=== PATIENT | male | born 1975 | race Caucasian/White ===

== ENCOUNTER 2025-02-28 12:07 | Observation (INO) | payer OTHER, SELFPAY ==
--- NOTE | ~2025-02-28 | CT_ITS ---
EXAMINATION: CT knee LT wo con DATE: 02/28/2025 12:51 INDICATION: Left knee pain and swelling. TECHNIQUE: Computed tomography (CT) of the left knee was performed without intravenous contrast. Automated exposure control and iterative reconstruction technique were employed. The dose-length product was 489.63 mGy-cm. COMPARISON: None FINDINGS: Alignment is normal. No fracture. There is mild osteoarthritis of medial and lateral compartments. No knee joint effusion. There is soft tissue swelling around the knee with an anterior predominance. There is a subcutaneous mass anterolateral to the distal femur measuring 4.1 x 1.7 x 3.0 cm. IMPRESSION: 1. Soft tissue swelling around the knee. A subcutaneous mass anterolateral to the distal femur that may be a hematoma or phlegmon/abscess. 2. Mild left knee osteoarthritis. Reviewed, dictated and finalized at location E. IMPRESSION: 1. Soft tissue swelling around the knee. A subcutaneous mass anterolateral to t he distal femur that may be a hematoma or phlegmon/abscess. 2. Mild left knee osteoarthritis.
[2025-02-28 12:07] VITALS: BP 128/81; PULSE 87; RESP 16; TEMP 36.4; O2SAT 100
--- NOTE | 2025-02-28 12:21 | ED_ITS ---
HPI - Extremity Injury (Lower) General Chief Complaint: Extremity Problem,Nontraumatic Stated Complaint: left knee redness and swelling Time Seen by Provider: 02/28/25 12:20 Source: patient Mode of arrival: ambulatory Limitations: no limitations History of Present Illness HPI Narrative: Patient is a 49-year-old male with a left knee pain and swelling and redness over the past week. He said the pain is more topical the deep into the knee joint. When he stands the pain is worst. He gets a throbbing pain. No fever or chills. No definite injury. No definite insect bite. Tetanus up-to-date. MD complaint: knee injury (Left knee without injury) Onset (ago): week(s) (1) Type of Injury: unknown Place: home Severity: moderate Severity scale (1-10): 4 Relieving factors: immobilization Exacerbating factors: weight bearing, movement and palpation Context: other (Unknown) Associated symptoms: swelling and able to partially bear weight Other symptoms: none Treatments prior to arrival: other (None) Related Data Home Medications ?Medication ?Instructions ?Recorded ?Confirmed ?Last Taken ?Type No Home Medications 02/28/25 02/28/25 U nknown History Allergies Allergy/AdvReac Type Severity Reaction Status Date / Time No Known Allergies Allergy Verified 02/28/25 12:22 Review of Systems 2 Review of Systems: All systems reviewed & are unremarkable except as noted in HPI and below Constitutional: Constitutional: Reports no additional constitutional complaints Eyes: Eyes: Reports no additional eye complaints ENT: Reports system reviewed and no additional complaints, except as documented Cardiovascular: Cardiovascular: Reports no additional cardiovascular complaints Respiratory: Respiratory: Reports no additional respiratory complaints Gastrointestinal: Gastrointestinal: Reports no additional gastrointestinal complaints Genitourinary: Genitourinary: Reports no additional male genitourinary complaints Musculoskeletal: Musculoskeletal: Reports no additional musculoskeletal complaints Integumentary/Breasts: Skin/Breast: Reports system reviewed and no additional complaints, except as docu Neurologic: Reports system reviewed and no additional complaints, except as documented Psychiatric: Psychiatric: Reports no additional psychiatric complaints Endocrine: Endocrine: Reports no additional endocrine complaints Hematologic/Lymphatic: Hematologic/Lymphatic: Reports no additional hematologic/lymphatic complaints Allergic/Immunologic: Allergic/Immunologic: Reports no additional allergic/immunologic complaints Exam 2 Const: General: healthy appearing Nutritional Appearance: well nourished Orientation/consciousness: patient oriented x3 HENMT: Head: normal to inspection Ears: external ears normal F sarah/Nose/Sinus: Normal external nose present Eyes: Conjunctivae: conjunctivae normal Pupils: Equal, round and reactive pupils present EOM: EOMs intact bilaterally Neck: Neck: normal visual inspection Chest: Chest palpation & inspection: normal inspection of the chest Resp: Effort & Inspection: normal respiratory effort and not labored A uscultation: clear to auscultation bilaterally and no crackles Cardio: Rate: regular rate Rhythm: regular rhythm Heart sounds: no murmurs GI: Inspection: non-distended GI Palp: Yes Soft to palpation and No Tenderness to palpation present (GI) Auscultation: normal bowel sounds : General: Yes bladder normal to palpation Back/Spine/Pelvis: Back: no CVA tenderness Skin: General skin exam: normal color Rashes: no rashes Wounds: no wounds Other: Left knee is red and swollen and tender to palpation Neuro: General: patient oriented x3, moves all extremities and no meningeal signs Extrem: General: normal to inspection, no clubbing, cyanosis or edema and no pedal edema Other: Left knee is tender and painful to palpation and range of motion but the pain appears to be more superficial than depth; swelling of the left knee Psych: Mental Status: mental status grossly normal Affect: normal affect Attitude: cooperative Course Vital Signs Vital signs: Vital Signs Temperature 36.4 C L 02/28/25 12:07 Pulse Rate 87 02/28/25 12:07 Respiratory Rate 16 02/28/25 12:07 Blood Pressure 128/81 02/28/25 12:07 Pulse Oximetry 100 02/28/25 12:07 Oxygen Delivery Room Air 02/28/25 12:07 Temperature 36.4 C L 02/28/25 12:07 Pulse Rate 78 02/28/25 14:44 Respiratory Rate 20 02/28/25 14:44 Blood Pressure 109/83 02/28/25 14:44 Pulse Oximetry 99 02/28/25 14:44 Oxygen Delivery Room Air 02/28/25 14:44 MDM - Extremity Injury (Lower) MDM Narrative Medical decision making narrative: Patient is a 49-year-old male with a left knee pain and swelling over the past week. CT scan of the left knee. Labs. I discussed the case with Orthopedic surgery at our [facility] and they deflected the case and said he can do IV antibiotics only and be switched to oral antibiotics. They did not need to do procedure on him at this time. We will admit to this facility for IV antibiotics as orthopedic surgeon at [facility] said no surgery needed but MRSA coverage needed. We will start Zosyn and let vancomycin be started on the floor as the bed is ready. Lab Data Attestation: I reviewed the patient's lab results. 02/28/25 12:31 02/28/25 12:31 Labs: Lab Results 02/28/25 02/28/25 02/28/25 Range/Units 12:29 12:31 14:46 WBC 13.3 H (4.8-10.8) K/mm3 RBC 4.64 L (4.70-6.10) M/mm3 Hgb 14.1 (14.0-18.0) g/dL Hct 42.7 (40.0-54.0) % MCV 92.0 (78.0-102.0) fL MCH 30.4 (27.0-31.0) pg MCHC 33.0 (32-36) g/dL RDW 12.6 (11.6-14.4) % Plt Count 280 (150-420) K/mm3 MPV 9.5 (8.7-11.0) fl Immature Gran % (Auto) 0.7 H (0.0-0.0) % Neut % (Auto) 74.0 H (50.0-70.0) % Lymph % (Auto) 18.4 (18.0-42.0) % [place] % (Auto) 5.9 (2.0-11.0) % Eos % (Auto) 0.5 L (1.0-6.0) % Baso % (Auto) 0.5 (0.0-1.0) % Lymph # (Auto) 2.44 (1.10-4.50) K/mm3 [place] # (Auto) 0.78 (0.10-0.90) K/mm3 Eos # (Auto) 0.06 (0.02-0.50) K/mm3 Baso # (Auto) 0.06 (0.00-0.10) K/mm3 Abs Immat Gran (auto) 0.09 H (0.00-0.00) K/mm3 Absolute Neuts (auto) 9.82 H (1.70-7.20) K/mm3 Absolute Nucleated RBC 0.00 (0.00-0.00) K/mm3 Nucleated RBC % 0.0 (0-0.0) % ESR 29 H (0-15) mm/hr PT 9.8 (9.50-12.1) Seconds INR 0.9 APTT 30.9 H (23.9-30.70) Sec Sodium 140 (137-145) mmol/L Potassium 3.9 (3.4-5.0) mmol/L Chloride 104 (98-107) mmol/L Carbon Dioxide 26 (22-30) mmol/L Anion Gap 10 (4-12) mmol/L BUN 15 (9-20) mg/dL Creatinine 0.67 L (0.7-1.3) mg/dL Estim Creat Clear Calc 120 ml/min Estimated GFR > 60 (59 - ) Glucose 145 H (65-110) mg/dL Calculated Osmolality 293 (285-295) mOsm/kg Lactic Acid 2.5 H 1.0 (0.4-2.0) mmol/L Calcium 9.5 (8.4-10.2) mg/dL Total Bilirubin 0.7 (0.2-1.3) mg/dL AST 27 (17-59) U/L ALT 25 (6-50) U/L Alkaline Phosphatase 82 (38-126) U/L C-Reactive Protein 3.9 H (<1.0) mg/dL Total Protein 8.7 H (6.3-8.2) g/dL Albumin 4.1 (3.5-5.1) g/dL Imaging Data Attestation: I personally reviewed and interpreted this imaging study as follows: Radiologist's impression: CT scan of the left knee shows IMPRESSION: 1. Soft tissue swelling around the knee. A subcutaneous mass anterolateral to the distal femur that may be a hematoma or phlegmon/abscess. 2. Mild left knee osteoarthritis. Discharge Plan Discharge Clinical Impression: Cellulitis of knee, left, Abscess of bursa of left knee Patient Disposition: [facility] Condition: Stable Time of Disposition: 14:30
[2025-02-28 12:40] LABS: Hematocrit 42.7 % (40.0-54.0); Hemoglobin 14.1 g/dL (14.0-18.0); Immature Granulocyte Percent A 0.7 % (0.0-0.0); Lymphocytes Absolute Auto 2.44 K/mm3 (1.10-4.50); Mean Corpuscular HGB Conc 33.0 g/dL (32-36); Mean Corpuscular Hemoglobin 30.4 pg (27.0-31.0); Mean Corpuscular Volume 92.0 fL (78.0-102.0); Nucleated Red Blood Cells Absolute Auto 0.00 K/mm3 (0.00-0.00); Nucleated Red Blood Cells Perc 0.0 % (0-0.0); Platelet Count Result 280 K/mm3 (150-420); Red Blood Count 4.64 M/mm3 (4.70-6.10); White Blood Count 13.3 K/mm3 (4.8-10.8)
[2025-02-28 12:55] LABS: Alanine Aminotransferase 25 U/L (6-50); Albumin Level 4.1 g/dL (3.5-5.1); Alkaline Phosphatase 82 U/L (38-126); Anion Gap 10 mmol/L (4-12); Aspartate Amino Transferase 27 U/L (17-59); Bilirubin,Total 0.7 mg/dL (0.2-1.3); Blood Urea Nitrogen 15 mg/dL (9-20); CRP 3.9 mg/dL (<1.0); Calcium 9.5 mg/dL (8.4-10.2); Carbon Dioxide 26 mmol/L (22-30); Chloride 104 mmol/L (98-107); Estimated CRCL calculation 120 ml/min; Estimated Glomerular Filt Rate > 60; Glucose 145 mg/dL (65-110); Osmolality Calculated 293 mOsm/kg (285-295); Potassium 3.9 mmol/L (3.4-5.0); Sodium 140 mmol/L (137-145); Total Protein 8.7 g/dL (6.3-8.2)
[2025-02-28 13:28] LABS: INR 0.9; Partial Thromboplastin Time 30.9 Sec (23.9-30.70); Prothrombin Time 9.8 Seconds (9.50-12.1)
[2025-02-28 13:35] VITALS: BP 117/83; PULSE 73; RESP 20; O2SAT 98
[2025-02-28] MEDS: PIPERACILLIN/TAZOBACTAM SOD 3.375 GM in SODIUM CHLORIDE 0.9% IV 50 ML 100 ML IVPB ×2 (14:34→20:52)
[2025-02-28 14:44] VITALS: BP 109/83; PULSE 78; RESP 20; O2SAT 99
[2025-02-28 15:49] VITALS: BMI 25.1
[2025-02-28 16:00] VITALS: BP 120/82; PULSE 74; RESP 18; TEMP 36.9; O2SAT 95
--- NOTE | 2025-02-28 17:01 | ADMGEN ---
1525 This patient, Pavan Miranda ., was admitted to 2nd Floor Room 210-1 for pain and redness to left knee. area is hot to cuh and painful. denies any injury just keeps getting mor painful over the last week. Patient/family oriented to hospital policies and general routines including ID bracelet, bed and alarms, visiting hours, pain management, procedures, bathroom and other care routines, personal items, smoking policy, room service/diet, and visiting hours. Information on how to activate the Rapid Response Team has been discussed. Patient/Family are encouraged to report perceived risks to care and to ask questions if they do not understand what they are told or what they should do.
[2025-02-28] MEDS: SODIUM CHLORIDE 0.9% IV 1,000 ML 100 ML IV CONT (17:19)
[2025-02-28] MEDS: DOCUSATE SODIUM 100 MG CAPSULE PO (17:20)
[2025-02-28] MEDS: MORPHINE SULFATE (*CRX) 4 MG/ML INJ 2 MG IV PUSH (18:59)
[2025-02-28] MEDS: VANCOMYCIN 2,000 MG/NS 500 ML 2,000 MG/500 ML BAG 250 MG IVPB (19:01)
[2025-03-01] VITALS: BP 121/78; PULSE 77; RESP 17; TEMP 36.7; O2SAT 97
[2025-03-01] MEDS: PIPERACILLIN/TAZOBACTAM SOD 3.375 GM in SODIUM CHLORIDE 0.9% IV 50 ML 100 ML IVPB ×4 (03:40→22:14)
[2025-03-01] MEDS: VANCOMYCIN 1,500 MG/NS 500 ML 1,500 MG/500 ML BAG 250 MG IVPB ×2 (06:23→18:30)
[2025-03-01] MEDS: HYDROcodone/acetaminophen (*CRX) 5-325 MG TABLET 1 TAB PO ×4 (06:46→22:23)
[2025-03-01 07:22] LABS: Hematocrit 38.6 % (40.0-54.0); Hemoglobin 12.5 g/dL (14.0-18.0); Immature Granulocyte Percent A 0.4 % (0.0-0.0); Lymphocytes Absolute Auto 3.01 K/mm3 (1.10-4.50); Mean Corpuscular HGB Conc 32.4 g/dL (32-36); Mean Corpuscular Hemoglobin 30.1 pg (27.0-31.0); Mean Corpuscular Volume 93.0 fL (78.0-102.0); Nucleated Red Blood Cells Absolute Auto 0.00 K/mm3 (0.00-0.00); Nucleated Red Blood Cells Perc 0.0 % (0-0.0); Platelet Count Result 248 K/mm3 (150-420); Red Blood Count 4.15 M/mm3 (4.70-6.10); White Blood Count 13.5 K/mm3 (4.8-10.8)
[2025-03-01 07:40] LABS: Alanine Aminotransferase 17 U/L (6-50); Albumin Level 3.3 g/dL (3.5-5.1); Alkaline Phosphatase 73 U/L (38-126); Anion Gap 9 mmol/L (4-12); Aspartate Amino Transferase 23 U/L (17-59); Bilirubin,Total 0.9 mg/dL (0.2-1.3); Blood Urea Nitrogen 10 mg/dL (9-20); CRP 5.8 mg/dL (<1.0); Calcium 8.9 mg/dL (8.4-10.2); Carbon Dioxide 24 mmol/L (22-30); Chloride 104 mmol/L (98-107); Estimated CRCL calculation 120 ml/min; Estimated Glomerular Filt Rate > 60; Glucose 91 mg/dL (65-110); Osmolality Calculated 283 mOsm/kg (285-295); Potassium 4.1 mmol/L (3.4-5.0); Sodium 137 mmol/L (137-145); Total Protein 6.6 g/dL (6.3-8.2)
[2025-03-01 08:00] VITALS: BP 134/85; PULSE 86; RESP 18; TEMP 37.4; O2SAT 95
[2025-03-01] MEDS: DOCUSATE SODIUM 100 MG CAPSULE PO ×2 (09:07→17:33)
[2025-03-01] MEDS: ENOXAPARIN 40 MG/0.4 ML SYRINGE SUB-Q (09:08)
--- NOTE | 2025-03-01 09:48 | PM.IMHP ---
H&P: HPI History of Present Illness Date/Time: 03/01/25 09:48 Chief Complaint: left knee pain Narrative: Patient is a 49-year-old male with past medical history of tobacco abuse. Patient reports that he started having left knee pain approximately 1 week ago. Patient reports there was no injury, wound or spider bite. Patient reports approximately 3 days before arriving he noticed redness and swelling to the knee. He reported that working and being active exacerbate the pain. Patient was seen in the ER and his blood work showed an elevated white blood cell count of 13.3 and a CRP of 3.8. Patient had a CT of his left knee done which showed No knee joint effusion. There is soft tissue swelling around the knee with an anterior predominance. There is a subcutaneous mass anterolateral to the distal femur measuring 4.1 x 1.7 x 3.0 cm. the ER MD discussed the case with Orthopedic surgery at [facility] and they stated that the patient could be treated here with IV antibiotics only did not need any procedures done at this time. The surgeon asked that antibiotic coverage including MRSA coverage. The patient was started on IV Zosyn and IV vancomycin. Pain control with IV morphine and p.o. [place] ordered. Patient was started on IV fluids. Patient was admitted for further evaluation and treatment. Review of Systems Review of Systems: All systems reviewed & are unremarkable except as noted in HPI and below PMFSH Social History Social History Smoking packs per day: 1 Smoking cigarettes per day: 20.0 Years smoked: 22 Smoking pack-years: 22.00 Smoking status: Heavy tobacco smoker Tobacco type: cigarettes Second hand tobacco smoke exposure: Yes Alcohol intake: never Substance use: current Substance use type: marijuana Lack of Transportation: No Lack of Food: Never True Current Housing: I Have Housing Concerned About Future Housing: No Difficulty Paying Gas/Electric Bills: No Difficulty Paying for Meds: No Currently Unemployed: No Education: High School Diploma/GED Difficulty w/ Childcare or Family Care: No Spiritual care concerns: No Meds Home Medications and Allergies Home Medications ?Medication ?Instructions ?Recorded ?Confirmed ?Type No Home Medications 02/28/25 02/28/25 History Allergies Allergy/AdvReac Type Severity Reaction Status Date / Time No Known Allergies Allergy Verified 02/28/25 12:22 Vital Signs Vital Signs - 24 hr 02/28/25 12:07 02/28/25 13:35 02/28/25 14:44 Temperature 97.5 F L Pulse Rate 87 73 78 Respiratory Rate 16 20 20 Blood Pressure 128/81 117/83 109/83 Pulse Oximetry 100 98 99 Oxygen Delivery Room Air Room Air Room Air 02/28/25 16:00 03/01/25 00:00 03/01/25 08:00 Temperature 98.4 F 98.1 F 99.4 F Pulse Rate 74 77 86 Respiratory Rate 18 17 18 Blood Pressure 120/82 121/78 134/85 Pulse Oximetry 95 97 95 Oxygen Delivery Room Air Room Air Room Air Exam Const: General: comfortable and no acute distress HENMT: Face/Nose/Sinus: Normal nares present Mouth: Yes moist mucous membranes Eyes: General: appearance normal, both eyes and all related structures Sclera: sclerae normal Neck: Neck: supple Resp: Effort & Inspection: normal respiratory effort Auscultation: clear to auscultation bilaterally Cardio: Rate: regular rate Rhythm: regular rhythm GI: GI Palp: Yes Soft to palpation Auscultation: normal bowel sounds Skin: General skin exam: normal color and no rashes or lesions noted Other: Left knee erythematous and warm, area marked with skin marker in ED, some improvement noted today Neuro: General: gait normal Speech: normal speech Motor exam (neuro): 5/5 motor strength present throughout Sensory Exam: normal sensation Extrem: General: normal to inspection Psych: Mental Status: mental status grossly normal Affect: normal affect H&P: Results Labs Labs: Short CBC 02/28/25 03/01/25 Range/Units 12:31 06:58 WBC 13.3 H 13.5 H (4.8-10.8) K/mm3 Hgb 14.1 12.5 L (14.0-18.0) g/dL Hct 42.7 38.6 L (40.0-54.0) % Plt Count 280 248 (150-420) K/mm3 BMP 02/28/25 03/01/25 12:31 06:59 Sodium 140 137 Potassium 3.9 4.1 Chloride 104 104 Carbon Dioxide 26 24 BUN 15 10 D Creatinine 0.67 L 0.67 L Glucose 145 H 91 Calcium 9.5 8.9 Liver Function 10/03/25 10/04/25 Range/Units 12:31 06:59 Total Bilirubin 0.7 0.9 (0.2-1.3) mg/dL AST 27 23 (17-59) U/L ALT 25 17 (6-50) U/L Alkaline Phosphatase 82 73 (38-126) U/L Albumin 4.1 3.3 L (3.5-5.1) g/dL Imaging Left Knee CT: Radiologist's impression: EXAMINATION: CT knee LT wo con DATE: 02/28/2025 12:51 INDICATION: Left knee pain and swelling. TECHNIQUE: Computed tomography (CT) of the left knee was performed without intravenous contrast. Automated exposure control and iterative reconstruction technique were employed. The dose-length product was 489.63 mGy-cm. COMPARISON: None FINDINGS: Alignment is normal. No fracture. There is mild osteoarthritis of medial and lateral compartments. No knee joint effusion. There is soft tissue swelling around the knee with an anterior predominance. There is a subcutaneous mass anterolateral to the distal femur measuring 4.1 x 1.7 x 3.0 cm. IMPRESSION: 1. Soft tissue swelling around the knee. A subcutaneous mass anterolateral to the distal femur that may be a hematoma or phlegmon/abscess. 2. Mild left knee osteoarthritis. Reviewed, dictated and finalized at location E. Assessment and Plan Assessment and plan (1) Cellulitis of knee, left: Code(s): L03.116 - Cellulitis of left lower limb Status: Acute Assessment and Plan: S/P left knee CT - FINDINGS: Alignment is normal. No fracture. There is mild osteoarthritis of medial and lateral compartments. No knee joint effusion. There is soft tissue swelling around the knee with an anterior predominance. There is a subcutaneous mass anterolateral to the distal femur measuring 4.1 x 1.7 x 3.0 cm. the ER MD discussed the case with Orthopedic surgery at [facility] and they stated that the patient could be treated here with IV antibiotics only did not need any procedures done at this time. The surgeon asked that antibiotic coverage including MRSA coverage WBC 13.3, ESR 3.8 on admission patient started on IV Zosyn and IV vancomycin IV fluids pain control with p.r.n. IV morphine and p.r.n. [place] slight improvement noted today compared to the skin markings from the ER doctor today's labs showed WBC 13.5, ESR 5.9 once patient has improved more the plan will be to discharge home on p.o. antibiotics A.m. labs (2) Abscess of bursa of left knee: Code(s): M71.062 - Abscess of bursa, left knee Status: Acute Assessment and Plan: see above (3) Leukocytosis: Code(s): D72.829 - Elevated white blood cell count, unspecified Status: Acute Assessment and Plan: WBC 13.3 on admission WBC 13.5 on today's labs IV Zosyn and IV Vancomycin afebrile f/u blood cultures AM labs (4) Smoker: Code(s): F17.200 - Nicotine dependence, unspecified, uncomplicated Status: Acute Assessment and Plan: smoking cessation encouraged nicotine patch if needed Quality VTE Prophylaxis VTE prophylaxis: pharmacologic ordered
[2025-03-01] MEDS: SODIUM CHLORIDE 0.9% IV 1,000 ML 100 ML IV CONT (12:54)
[2025-03-01 16:00] VITALS: BP 113/73; PULSE 74; RESP 15; TEMP 36.8; O2SAT 95
--- NOTE | 2025-03-01 20:14 | PC.NURSE ---
Patient in bed resting in bed. Up to bathroom and ambulates in room ad jr. Redness and swelling decreased. Patient requested pain medication x1.
[2025-03-01 23:12] VITALS: BP 120/69; PULSE 86; RESP 18; TEMP 37.7; O2SAT 100
[2025-03-02] MEDS: SODIUM CHLORIDE 0.9% IV 1,000 ML 100 ML IV CONT (02:07)
[2025-03-02] MEDS: PIPERACILLIN/TAZOBACTAM SOD 3.375 GM in SODIUM CHLORIDE 0.9% IV 50 ML 100 ML IVPB ×2 (02:07→09:04)
[2025-03-02] MEDS: HYDROcodone/acetaminophen (*CRX) 5-325 MG TABLET 1 TAB PO ×2 (02:13→07:12)
[2025-03-02] MEDS: VANCOMYCIN 1,500 MG/NS 500 ML 1,500 MG/500 ML BAG 250 MG IVPB (06:14)
[2025-03-02 06:36] LABS: Hematocrit 35.7 % (40.0-54.0); Hemoglobin 11.8 g/dL (14.0-18.0); Immature Granulocyte Percent A 0.5 % (0.0-0.0); Lymphocytes Absolute Auto 2.30 K/mm3 (1.10-4.50); Mean Corpuscular HGB Conc 33.1 g/dL (32-36); Mean Corpuscular Hemoglobin 30.3 pg (27.0-31.0); Mean Corpuscular Volume 91.5 fL (78.0-102.0); Nucleated Red Blood Cells Absolute Auto 0.00 K/mm3 (0.00-0.00); Nucleated Red Blood Cells Perc 0.0 % (0-0.0); Platelet Count Result 248 K/mm3 (150-420); Red Blood Count 3.90 M/mm3 (4.70-6.10); White Blood Count 13.0 K/mm3 (4.8-10.8)
[2025-03-02 07:03] LABS: Alanine Aminotransferase 16 U/L (6-50); Albumin Level 2.9 g/dL (3.5-5.1); Alkaline Phosphatase 71 U/L (38-126); Anion Gap 7 mmol/L (4-12); Aspartate Amino Transferase 22 U/L (17-59); Bilirubin,Total 0.4 mg/dL (0.2-1.3); Blood Urea Nitrogen 12 mg/dL (9-20); Calcium 8.6 mg/dL (8.4-10.2); Carbon Dioxide 26 mmol/L (22-30); Chloride 105 mmol/L (98-107); Estimated CRCL calculation 113 ml/min; Estimated Glomerular Filt Rate > 60; Glucose 95 mg/dL (65-110); Osmolality Calculated 285 mOsm/kg (285-295); Potassium 4.1 mmol/L (3.4-5.0); Sodium 138 mmol/L (137-145); Total Protein 5.8 g/dL (6.3-8.2)
[2025-03-02 08:00] VITALS: BP 111/63; PULSE 77; RESP 18; TEMP 37; O2SAT 95
[2025-03-02] MEDS: DOCUSATE SODIUM 100 MG CAPSULE PO (09:05)
[2025-03-02] MEDS: ENOXAPARIN 40 MG/0.4 ML SYRINGE SUB-Q (09:05)
--- NOTE | 2025-03-02 11:39 | PC.NURSE ---
Mari Angela and Dr Herzog from ED to look at knee cellulitis
--- NOTE | 2025-03-02 13:11 | PC.NURSE ---
Awaiting call back from house superintendent at [facility], accepted by DR Orozco for direct admit.
[2025-03-02] MEDS: metroNIDAZOLE 500 MG/ISO 100ML 500 MG/100 ML BAG 100 MG IVPB (13:13)
--- NOTE | 2025-03-02 13:40 | P.DS_ITS ---
DS: Admitting Diagnosis Discharge Date 03/02/2025 Admitting Diagnosis left knee cellulitis DS: Discharge Diagnosis Discharge Diagnosis (1) Cellulitis of knee, left: Code(s): L03.116 - Cellulitis of left lower limb Status: Acute Assessment and Plan: S/P left knee CT - FINDINGS: Alignment is normal. No fracture. There is mild osteoarthritis of medial and lateral compartments. No knee joint effusion. There is soft tissue swelling around the knee with an anterior predominance. There is a subcutaneous mass anterolateral to the distal femur measuring 4.1 x 1.7 x 3.0 cm. the ER MD discussed the case with Orthopedic surgery at [facility] and they stated that the patient could be treated here with IV antibiotics only did not need any procedures done at this time. The surgeon asked that antibiotic coverage including MRSA coverage WBC 13.3, ESR 3.8 on admission patient started on IV Zosyn and IV vancomycin IV fluids pain control with p.r.n. IV morphine and p.r.n. [place] Patients wbc and ESR remain elevated palpable abscess on exam, no open wound to drain discussed case with general surgery at [facility] and decision made to transfer patient for surgical intervention patient agrees for transfer (2) Abscess of bursa of left knee: Code(s): M71.062 - Abscess of bursa, left knee Status: Acute Assessment and Plan: see above (3) Leukocytosis: Code(s): D72.829 - Elevated white blood cell count, unspecified Status: Acute Assessment and Plan: WBC 13.3 on admission WBC not improving IV Zosyn and IV Vancomycin afebrile f/u blood cultures (4) Smoker: Code(s): F17.200 - Nicotine dependence, unspecified, uncomplicated Status: Acute Assessment and Plan: smoking cessation encouraged nicotine patch if needed DS: Summary Hospital Course Reason for hospitalization: left knee cellulitis Hospital Course: Patient is a 49-year-old male with past medical history of tobacco abuse. Patient reports that he started having left knee pain approximately 1 week ago. Patient reports there was no injury, wound or spider bite. Patient reports approximately 3 days before arriving he noticed redness and swelling to the knee. He reported that working and being active exacerbate the pain. Patient was seen in the ER and his blood work showed an elevated white blood cell count of 13.3 and a CRP of 3.8. Patient had a CT of his left knee done which showed No knee joint effusion. There is soft tissue swelling around the knee with an anterior predominance. There is a subcutaneous mass anterolateral to the distal femur measuring 4.1 x 1.7 x 3.0 cm. the ER MD discussed the case with Orthopedic surgery at [facility] and they stated that the patient could be treated here with IV antibiotics only did not need any procedures done at this time. The surgeon asked that antibiotic coverage including MRSA coverage. The patient was started on IV Zosyn and IV vancomycin. Pain control with IV morphine and p.o. [place] ordered. Patient was started on IV fluids. Patient was admitted for further evaluation and treatment. Patient is a 49 year old male with PMH of tobacco abuse. Patient was admitted at [facility] for left knee cellulitis and possible abscess. Patient reports he started having pain approximately 1 week ago, there was no injury, wound or spider bite. Patient reports that he noticed redness and swelling to the knee approximately 3 days before presenting to the ER. Patient had an elevated white blood cell count 13.3 and CRP of 3.8 on admission. Patient had a CT of his left knee done which showed No knee joint effusion. There is soft tissue swelling around the knee with an anterior predominance. There is a subcutaneous mass anterolateral to the distal femur measuring 4.1 x 1.7 x 3.0 cm. Patient was admitted to the hospital and was treated with IV Zosyn and IV Vancomycin. Patient's pain was improving and there was some notable improvement to the erythema to the left knee joint, however there was a palpable abscess. Patient's white blood cell count was not improving. There was no open wound and the abscess was not draining. The case was discussed with general surgery at [facility] and they agreed the abscess needed drainage. Patient agreed to transfer for surgical intervention. Patient was transferred to [facility] by [facility]. Time Spent with Patient Time attestation: Total time spent providing and/or coordinating discharge services: 35 Minutes Exam Const: General: comfortable and no acute distress HENMT: Face/Nose/Sinus: Normal nares present Mouth: Yes moist mucous membranes Eyes: General: appearance normal, both eyes and all related structures Sclera: sclerae normal Neck: Neck: supple Resp: Effort & Inspection: normal respiratory effort Auscultation: clear to auscultation bilaterally Cardio: Rate: regular rate Rhythm: regular rhythm GI: Auscultation: normal bowel sounds Skin: General skin exam: normal color and no rashes or lesions noted Other: Left knee erythematous and warm, area marked with skin marker in ED, some improvement noted today Neuro: General: gait normal Speech: normal speech Motor exam (neuro): 5/5 motor strength present throughout Sensory Exam: normal sensation Extrem: General: normal to inspection Psych: Mental Status: mental status grossly normal Affect: normal affect DS: Data Data Completed and Pending Labs on day of discharge: Labs from last 24 hours 03/02/25 04:50 WBC 13.0 H RBC 3.90 L Hgb 11.8 L Hct 35.7 L MCV 91.5 MCH 30.3 MCHC 33.1 RDW 12.2 Plt Count 248 MPV 10.2 Immature Gran % (Auto) 0.5 H Neut % (Auto) 72.5 H Lymph % (Auto) 17.7 L [place] % (Auto) 8.0 Eos % (Auto) 0.8 L Baso % (Auto) 0.5 Lymph # (Auto) 2.30 [place] # (Auto) 1.04 H Eos # (Auto) 0.10 Baso # (Auto) 0.06 Abs Immat Gran (auto) 0.06 H Absolute Neuts (auto) 9.47 H Absolute Nucleated RBC 0.00 Nucleated RBC % 0.0 ESR 46 H Sodium 138 Potassium 4.1 Chloride 105 Carbon Dioxide 26 Anion Gap 7 BUN 12 Creatinine 0.71 Estim Creat Clear Calc 113 Estimated GFR > 60 Glucose 95 Calculated Osmolality 285 Calcium 8.6 Total Bilirubin 0.4 AST 22 ALT 16 Alkaline Phosphatase 71 Total Protein 5.8 L Albumin 2.9 L Vancomycin Trough 7.5 L Discharge Plan Discharge Attending physician on discharge: Hiren Solomon Consulting providers: Mari Angela Discharging Clinician: Mari Angela Patient Disposition: Acute Care Hospital [facility] Activity: as tolerated Diet: regular Discharge Instructions: Transfer to [facility] via EMS for general surgery consult for left knee abscess. Patient Instructions: Antibiotic Form, How to Stop Smoking (DC) Patient Language: Bhutanese Stand Alone Forms: General Discharge Information Date of admission: 02/28/25 14:58 Primary Care Provider: Tomasz Guerra Admitting Provider: Hiren Solomon Attending physician on admission: Juanito,Hiren Condition: Stable Quality VTE Prophylaxis VTE prophylaxis: pharmacologic ordered
--- NOTE | 2025-03-02 13:50 | PC.NURSE ---
Report to [facility]
--- NOTE | 2025-03-02 13:52 | PC.NURSE ---
[facility] paged for transfer
--- NOTE | 2025-03-02 14:20 | PC.NURSE ---
Report to EMS for transfer, paperwork for receiving hospital to EMS, alert and oriented, flagyl infused, ns at 100 /hr continues
== END 2025-03-02 14:20 | disposition short-term general hospital (02) ==
LOC: CHSED 14:30 → CHS2ND 15:08
PROVIDERS: Nurse Practitioner Adult Health; Admitting Provider Internal Medicine; Emergency Provider Emergency Medicine; PCP Internal Medicine; Visit Provider Internal Medicine
DX: L03.116 Cellulitis of left lower limb (principal); M71.062 Abscess of bursa, left knee; D72.829 Elevated white blood cell count, unspecified; F17.210 Nicotine dependence, cigarettes, uncomplicated
CPT/HCPCS: 36415; 73700; 80053; 80202; 83605; 85025; 85610; 85652; 85730; 86140; 96361; 96365; 96366; 96367; 96372; 96375; 99285; A9270; G0378; G0379; J1650; J1836; J2270; J2543; J3373; J7030

== ENCOUNTER 2025-03-02 15:33 | Observation (INO) | payer OTHER, SELFPAY ==
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
--- OUTSIDE RECORDS SUMMARY | 2025-03-02 15:06 | XMS_ITS | Encounter Summary ---
Author Organization [facility] Address [address] [place] [address] Care Team Providers Care Assistant Passenger Locomotive Engineer Name Role Phone None, Provider Primary Care Provider Kit ble Encounter Details Date Type Department Care Team (Late st Contact Info) Description 02/20/2024 Hospital Follow-up Call [facility] [address] [place] [address] Venessa Constantino RN Social History Tobacco Use Types Packs/Day Years Used Date Smoking Tobacco: Never Assessed [facility] Utilities Answer Date Recorded In the past 12 months has e electric, gas, oil, or water [employer] threatened to shut off services in your [...] any time in the past [address] [facility], were you homeless or living in a residential (including now)? 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 Answer Date of Assessment Author Status No 02/17/2024 11:00 AM Juliana Avila RN Active * Do you have serious difficulty walking or climbing stairs? Answer Date of Assessment Author Status No 02/17/2024 11:00 AM Juliana Avila RN Active * Do you have difficulty dressing or bathing? Answer Date of Assessment Author Status No 02/17/2024 11:00 AM Juliana Avila RN Active * Because of a physical, mental, or emotional condition, do you have difficulty doing errands alone such as visiting a doctor's office or shopping? Answer Date of Assessment Author Status No 02/17/2024 11:00 AM Juliana Avila RN Active documented as of this encounter Mental Status * Because of a physical, mental, or emotional condition, do you have serious difficulty concentrating, remembering, or making decisions? Answer Entry Date Author Status No 02/17/2024 11:00 AM Juliana Avila RN Active documented in this encounter Plan of Treatment Not on file documented as of this encounter Visit Diagnoses Not on filedocumented in this encounter Care Teams Assistant Passenger Locomotive Engineer Relationship Specialty Start Date End Date None, Provider, PCP - General UNKNOWN PHYSICIAN SPECIALTY 02/17/24 documented as of this encounter
--- OUTSIDE RECORDS SUMMARY | 2025-03-02 15:06 | XMS_ITS | Encounter Summary ---
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
[2025-03-02 15:15] VITALS: BMI 26.1
--- NOTE | 2025-03-02 15:15 | PC.NURSE ---
This patient was received from [facility] as a direct admit. Room 346 at 1510.
[2025-03-02 15:31] VITALS: BP 139/83; PULSE 76; RESP 16; TEMP 37.2; O2SAT 97
--- OUTSIDE RECORDS SUMMARY | 2025-03-02 15:43 | XMS_ITS | Clinical Summary ---
Author Organization [facility] Address [address] [place] [address] Care Team Providers Care Tool Polisher Name Role Phone None, Provider MD Primary [...] Years Used Date Smoking Tobacco: Never Assessed [facility] Utilities Answer Date Recorded In the [...] any time in the past 12 m [facility], were you homeless or living in a custodial (including now)? 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
--- OUTSIDE RECORDS SUMMARY | 2025-03-02 15:43 | XMS_ITS | Encounter Summary ---
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
--- OUTSIDE RECORDS SUMMARY | 2025-03-02 15:43 | XMS_ITS | Encounter Summary ---
Author Organization [facility] Address [address] [place] [address] Care Team Providers Care Shingle Catcher Name Role Phone None, Provider Primary Care Provider Kit ble Encounter Details Date Type Department Care Team (Late st Contact Info) Description 02/20/2024 Hospital Follow-up Call [facility] Cardiovascular Care Unit [address] [place] [address] Venessa Constantino RN Social History Tobacco Use Types Packs/Day Years Used Date Smoking Tobacco: Never Assessed [facility] Utilities Answer Date Recorded In the past 12 months has e electric, gas, oil, or water [employer] threatened to shut off services in your [...] any time in the past 12 m [facility], were you homeless or living in a residential (including now)? 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
--- NOTE | 2025-03-02 15:53 | PM.IMHP ---
H&P: HPI History of Present Illness Date/Time: 03/02/25 15:53 Chief Complaint: Left knee bursa abscess Narrative: This is a 49-year-old male patient no significant past medical history except smoking tobacco who is transferred to this facility from [facility] where he had previously been admitted with cellulitis and abscess of the left knee. He had been admitted on 02/28/2025 with IV antibiotics pain medication. Patient has continued to have elevated white blood cell count and a consolidation his swelling erythema tenderness. CT scan noted that there was a hematoma verses phlegmon/developing abscess in the left knee bursa. Orthopedics declined patient since the infection was not in the knee joint. General surgery, Dr. Tahkur, was contacted today and agreed to consult with likely plan to go to OR for I&D on 03/03/25. Patient had been on vancomycin and Zosyn, renal function on morning labs still normal. Decision was made to change antibiotics to cefepime Flagyl and vancomycin on arrival to this facility. Pharmacy has been following vancomycin dosing and has escalated dosing today. Patient will be kept NPO after midnight. Review of Systems Review of Systems: All systems reviewed & are unremarkable except as noted in HPI and below PMFSH Family History Family History Mother Brain cancer Social History Social History Smoking packs per day: 0.5 Smoking cigarettes per day: 10.0 Years smoked: 35 Smoking pack-years: 17.50 Smoking status: Current every day smoker Tobacco type: cigarettes Second hand tobacco smoke exposure: No Alcohol intake: never Substance use: current Substance use type: marijuana Last use: 02/27/25 Lack of Transportation: No Lack of Food: Never True Current Housing: I Have Housing Concerned About Future Housing: No Difficulty Paying Gas/Electric Bills: No Difficulty Paying for Meds: No Currently Unemployed: No Education: Associate Degree Difficulty w/ Childcare or Family Care: No Spiritual care concerns: No Meds Home Medications and Allergies Home Medications ?Medication ?Instructions ?Recorded ?Confirmed ?Type No Home Medications 02/28/25 03/02/25 History Allergies Allergy/AdvReac Type Severity Reaction Status Date / Time No Known Allergies Allergy Verified 02/28/25 12:22 Vital Signs Vital Signs - 24 hr 03/02/25 15:31 Temperature 37.2 C Pulse Rate 76 Respiratory Rate 16 Blood Pressure 139/83 Pulse Oximetry 97 Exam Narrative: GENERAL: Well-appearing, well-nourished, and in no acute distress. HEAD: Normocephalic, atraumatic. ENT:? Mucous membranes moist. CHEST: Clear to auscultation.? No respiratory distress. HEART: Regular rate and rhythm. ? Normal peripheral pulses. ABDOMEN: Soft, nontender, nondistended. EXTREMITIES: Normal range of motion. Left knee erythema warmth tenderness and fluctuance noted to the suprapatellar bursa SKIN: Warm dry normal color NEURO: Alert and oriented x3. PSYCH: Normal mood and affect H&P: Results Labs Labs: Labs from last 24 hours 03/02/25 04:50 WBC 13.0 H RBC 3.90 L Hgb 11.8 L Hct 35.7 L MCV 91.5 MCH 30.3 MCHC 33.1 RDW 12.2 Plt Count 248 MPV 10.2 Immature Gran % (Auto) 0.5 H Neut % (Auto) 72.5 H Lymph % (Auto) 17.7 L [place] % (Auto) 8.0 Eos % (Auto) 0.8 L Baso % (Auto) 0.5 Lymph # (Auto) 2.30 [place] # (Auto) 1.04 H Eos # (Auto) 0.10 Baso # (Auto) 0.06 Abs Immat Gran (auto) 0.06 H Absolute Neuts (auto) 9.47 H Absolute Nucleated RBC 0.00 Nucleated RBC % 0.0 ESR 46 H Sodium 138 Potassium 4.1 Chloride 105 Carbon Dioxide 26 Anion Gap 7 BUN 12 Creatinine 0.71 Estim Creat Clear Calc 113 Estimated GFR > 60 Glucose 95 Calculated Osmolality 285 Calcium 8.6 Total Bilirubin 0.4 AST 22 ALT 16 Alkaline Phosphatase 71 Total Protein 5.8 L Albumin 2.9 L Vancomycin Trough 7.5 L Pulse Oximetry SpO2 results: 97% on room air Attestation: I personally reviewed and interpreted this pulse oximetry as follows: Interpretation: No need for supplemental oxygenation at this time Imaging CT Knee: Radiologist's impression: EXAMINATION: CT knee LT wo con DATE: 02/28/2025 12:51 INDICATION: Left knee pain and swelling. TECHNIQUE: Computed tomography (CT) of the left knee was performed without intravenous contrast. Automated exposure control and iterative reconstruction technique were employed. The dose-length product was 489.63 mGy-cm. COMPARISON: None FINDINGS: Alignment is normal. No fracture. There is mild osteoarthritis of medial and lateral compartments. No knee joint effusion. There is soft tissue swelling around the knee with an anterior predominance. There is a subcutaneous mass anterolateral to the distal femur measuring 4.1 x 1.7 x 3.0 cm. IMPRESSION: 1. Soft tissue swelling around the knee. A subcutaneous mass anterolateral to the distal femur that may be a hematoma or phlegmon/abscess. 2. Mild left knee osteoarthritis. Reviewed, dictated and finalized at location E. Assessment and Plan Assessment and plan (1) Abscess of bursa of left knee: Code(s): M71.062 - Abscess of bursa, left knee Status: Acute Assessment and Plan: -Consolidating swelling warmth and erythema with fluctuance suggesting evolution of phlegmon/abscess -Dr. Thakur agreed to consult and see patient on 03/03/25 if patient transferred to Hospitalist Service -IV vancomycin dosing increased due to low Trough and continued evolution of abscess -IV Zosyn changed to cefepime and Flagyl to preserve renal function -Pain controlled on Tylenol/Riddle/morphine for mild/moderate/severe pain -NPO after midnight (2) Cellulitis of knee, left: Code(s): L03.116 - Cellulitis of left lower limb Status: Acute Assessment and Plan: See above (3) Smoker: Code(s): F17.200 - Nicotine dependence, unspecified, uncomplicated Status: Acute Assessment and Plan: -Declined nicotine patch at [facility] Quality If No VTE Prophylaxis Answer both mechanical and pharmacologic: Reason no mechanical VTE proph: low risk/not indicated and medical contraindication (leg swelling/pain) Reason no pharmacologic proph: low risk/not indicated and medical contraindication (OR planned 03/02/25) Patient indicated he would leave [place] if his visitor unable to stay overnight due to her own medical history, Cut Off Machine Unloader notified. Hospitalist MIPS Advance Care Plan I have confirmed that the patient's Advanced Care Plan is present, code status is documented, or surrogate decision maker is listed in patient medical record.: Yes Medication Reconciliation I have utilized all available resources to obtain, update and review the patients current medications (includes all prescriptions, OTC, herbals, cannabis, and nutritional supplements).: Yes
[2025-03-02] MEDS: HYDROcodone/acetaminophen (*CRX) 5-325 MG TABLET 1 TAB PO ×2 (15:58→21:22)
[2025-03-02] MEDS: CEFEPIME 2 GM in SODIUM CHLORIDE 0.9% IV 50 ML 100 ML IVPB (15:59)
[2025-03-02 16:00] VITALS: BP 148/91; PULSE 96; RESP 20; TEMP 36.9; O2SAT 96
[2025-03-02] MEDS: VANCOMYCIN 2,000 MG/NS 500 ML 2,000 MG/500 ML BAG 250 MG IVPB (17:47)
[2025-03-02] MEDS: SODIUM CHLORIDE 0.9% IV 1,000 ML 75 ML IV CONT (21:22)
[2025-03-02] MEDS: metroNIDAZOLE 500 MG/ISO 100ML 500 MG/100 ML BAG 100 MG IVPB (21:22)
[2025-03-02 22:57] VITALS: BP 134/77; PULSE 85; RESP 16; TEMP 37.3; O2SAT 96
[2025-03-03] VITALS (11 sets, daily range): BP systolic 111–127; BP diastolic 51–83; PULSE 68–84; RESP 12–20; TEMP 36.1–37.2; O2SAT 94–100
[2025-03-03] MEDS: CEFEPIME 2 GM in SODIUM CHLORIDE 0.9% IV 50 ML 100 ML IVPB ×4 (00:37→23:56)
[2025-03-03] MEDS: HYDROcodone/acetaminophen (*CRX) 5-325 MG TABLET 1 TAB PO ×3 (03:21→22:41)
[2025-03-03] MEDS: metroNIDAZOLE 500 MG/ISO 100ML 500 MG/100 ML BAG 100 MG IVPB ×3 (05:21→22:42)
[2025-03-03] MEDS: VANCOMYCIN 2,000 MG/NS 500 ML 2,000 MG/500 ML BAG 250 MG IVPB ×2 (05:21→17:57)
[2025-03-03 05:56] LABS: Hematocrit 37.6 % (42.0-52.0); Hemoglobin 12.7 g/dL (14.0-18.0); Immature Granulocyte Percent A 0.7 % (0-0.5); Lymphocytes Absolute Auto 2.14 K/mm3 (0.9-3.2); Mean Corpuscular HGB Conc 33.8 g/dl (32-36); Mean Corpuscular Hemoglobin 30.7 pg (26-34); Mean Corpuscular Volume 90.8 fl (80-100); Nucleated Red Blood Cells Absolute Auto 0.000 K/mm3 (0.0-0.012); Nucleated Red Blood Cells Perc 0.0 % (0.0-0.2); Platelet Count Result 249 k/mm3 (150-375); Red Blood Count 4.14 M/mm3 (4.6-6.20); White Blood Count 12.9 K/mm3 (4.5-10.0)
[2025-03-03 06:22] LABS: Alanine Aminotransferase 23 U/L (6-50); Albumin Level 3.4 g/dL (3.5-5.1); Alkaline Phosphatase 80 U/L (38-126); Anion Gap 6 mmol/L (4-12); Aspartate Amino Transferase 34 U/L (17-59); Bilirubin,Total 0.4 mg/dL (0.2-1.3); Blood Urea Nitrogen 11 mg/dL (9-20); Calcium 8.7 mg/dL (8.4-10.2); Carbon Dioxide 25 mmol/L (22-30); Chloride 103 mmol/L (98-107); Estimated CRCL calculation 128 ml/min; Estimated Glomerular Filt Rate > 60; Glucose 93 mg/dL (65-110); Magnesium 1.9 mg/dL (1.6-2.3); Potassium 3.8 mmol/L (3.4-5.0); Sodium 134 mmol/L (137-145); Total Protein 6.8 g/dL (6.3-8.2)
--- NOTE | 2025-03-03 06:58 | PM.IMPN ---
Progress Note: A&P Assessment and Plan (1) Abscess of bursa of left knee: Code(s): M71.062 - Abscess of bursa, left knee Status: Acute Assessment and Plan: Consolidated swelling and erythema with fluctuance to the medial aspect of the distal femur superior to the patella No obvious wounds. No drainage. Denies any trauma. Knee CT: Soft tissue swelling around the knee. A subcutaneous mass anterolateral to the distal femur that may be a hematoma or phlegmon/abscess. - Antibiotics: Vancomycin and Zosyn started on 03/01. Transitioned to vancomycin, cefepime and Flagyl on 03/02 - Analgesics: Tylenol/[place]/morphine for mild/moderate/severe pain respectively - Blood cultures obtained on 02/28: NGTD - UDS ordered - Monitor vital signs, I&Os - Monitor serum electrolytes, CBC, cultures, WBC and temp curve - Surgery consulted plan for I&D left knee abscess on 03/[address] Thakur (2) Cellulitis of knee, left: Code(s): L03.116 - Cellulitis of left lower limb Status: Acute Assessment and Plan: See above (3) Smoker: Code(s): F17.200 - Nicotine dependence, unspecified, uncomplicated Status: Acute Assessment and Plan: -Declined nicotine patch at [facility] Time Spent With Patient Time with patient: 25 - 35 minutes Subjective Date/time seen: 03/03/25 06:58 Interval history: 49-year-old male smoker with no significant past medical history who was transferred to [facility] [place] [facility] [place] been admitted with cellulitis and abscess of the left knee. Patient is pleasant sitting up comfortably in bed with family at bedside. He states that the pain and swelling has improved since admission. He denies any associated tingling/numbness or shooting pains to the lower extremity. He denies any recent trauma/bite/wounds to the area. He has no other complaints denying chest pain, shortness a breath, palpitations, nausea/vomiting, and abdominal pain. Review of Systems Review of Systems: All systems reviewed & are unremarkable except as noted in HPI and below Exam Narrative: AF HR 68 RR 18 Spo2 94 BP 117/51 General: male in no acute respiratory distress who is nontoxic appearing, lying semi recumbent in bed. HEENT: Normocephalic. Atraumatic. Extraocular movement intact. Sclera clear and anicteric. No facial asymmetry. Chest: Lungs are clear to auscultation bilaterally. No wheezes or crackles. CV: Heart was regular rate and rhythm. Abd: Abdomen was soft. Nontender. Nondistended. Positive bowel sounds. Ext: Redness and swelling to the medial aspect of the distal femur superior to the patella with fluctuance, no obvious wounds and no drainage. DP pulses bilaterally. Neuro: Patient is alert. Speech is clear. Objective Data Vital Signs Vital Signs: Vital Signs - 24 hr 03/02/25 15:31 03/02/25 15:46 03/02/25 16:00 Temperature 98.9 F 98.4 F Pulse Rate 76 96 Respiratory Rate 16 20 Blood Pressure 139/83 148/91 H Pulse Oximetry 97 96 Oxygen Delivery Room Air 03/02/25 20:00 03/02/25 22:57 03/03/25 06:00 Temperature 99.1 F 98 F Pulse Rate 85 68 Respiratory Rate 16 18 Blood Pressure 134/77 117/51 L Pulse Oximetry 96 94 Oxygen Delivery Room Air Intake/Output Intake/Output: Intake & Output 02/28/25 03/01/25 03/02/25 03/03/25 23:59 23:59 23:59 23:59 Intake Total 1680 Balance 1680 Meds/Results Medications: Active Medications Generic Name Dose Route Start Last Admin Trade Name Freq PRN Reason Stop Dose Admin Acetaminophen 650 mg 03/02/25 15:33 Acetaminophen 325 Mg Tablet PO Q4H PRN Mild Pain (1-3) or Fever Hydrocodone Bitart/Acetaminophen 1 tab 03/02/25 15:33 03/03/25 03:21 Hydrocodone/Acetaminophen (*Crx) 5-325 Mg Tablet PO 1 tab Q4H PRN Administration Moderate Pain (4-6) Cefepime HCl 2 gm/ Sodium 50 mls @ 100 mls/hr 03/02/25 16:00 03/03/25 00:37 Chloride IVPB 100 mls/hr Q8H TAMANNA Administration Metronidazole 500 mg in 100 mls @ 100 mls/hr 03/02/25 22:00 03/03/25 05:21 Flagyl 500 Mg/Iso Soln 100 Ml IVPB 100 mls/hr Q8HR TAMANNA Administration Sodium Chloride 1,000 mls @ 75 mls/hr 03/02/25 23:00 03/02/25 21:22 Normal Saline Iv IV CONT 75 mls/hr .[id number] TAMANNA Administration Vancomycin HCl 2,000 mg in 500 mls @ 250 mls/hr 03/02/25 18:00 03/03/25 05:21 Vancomycin 2,000 Mg/Ns 500 Ml IVPB 250 mls/hr Q12H TAMANNA Administration Morphine Sulfate 2 mg 03/02/25 15:46 Morphine Sulfate (*Crx) 4 Mg/Ml Inj IV PUSH Q4H PRN Pain Rated 7-10 Ondansetron HCl 4 mg 03/02/25 15:33 Ondansetron Inj 4 Mg/2 Ml Vial IV PUSH Q6H PRN Nausea And Vomiting Labs Labs: Laboratory Results - last 24 hr 03/03/25 05:32 WBC 12.9 H RBC 4.14 L Hgb 12.7 L Hct 37.6 L MCV 90.8 MCH 30.7 MCHC 33.8 RDW 12.1 Plt Count 249 MPV 9.6 Immature Gran % (Auto) 0.7 H Neut % (Auto) 73.8 H Lymph % (Auto) 16.6 L [place] % (Auto) 7.5 Eos % (Auto) 0.9 Baso % (Auto) 0.5 Lymph # (Auto) 2.14 [place] # (Auto) 1.0 H Eos # (Auto) 0.1 Baso # (Auto) 0.1 Abs Immat Gran (auto) 0.09 H Absolute Neuts (auto) 9.5 H Absolute Nucleated RBC 0.000 Nucleated RBC % 0.0 Sodium 134 L Potassium 3.8 Chloride 103 Carbon Dioxide 25 Anion Gap 6 BUN 11 Creatinine 0.62 L Estim Creat Clear Calc 128 Estimated GFR > 60 Glucose 93 Calcium 8.7 Magnesium 1.9 Total Bilirubin 0.4 AST 34 ALT 23 Alkaline Phosphatase 80 Total Protein 6.8 Albumin 3.4 L Quality VTE Prophylaxis VTE prophylaxis: mechanical ordered
--- NOTE | 2025-03-03 11:19 | P.CONGS_ITS ---
Assessment and Plan Assessment and plan (1) Abscess of bursa of left knee: Code(s): M71.062 - Abscess of bursa, left knee Status: Acute Assessment and Plan: Patient presented to [facility] on Monday with increased left knee swelling, redness, and pain x 2 weeks. 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 CT of the knee with performed and demonstrated soft tissue swelling around the knee. A subcutaneous mass anterior lateral to the distal femur that may be a hematoma or phlegmon/abscess. He was started on zosyn and vancomycin. Patient's WBC was increased at 13.3, now down to 12.9. Low grade fever over the weekend, now afebrile. The decision was made to transfer to [facility]. Patient is currently NPO for surgery today. Currently being treated with cefepime, vanc, and flagyl. He will undergo incision and drainage of left knee abscess this afternoon with Dr. Thakur. (2) Cellulitis of knee, left: Code(s): L03.116 - Cellulitis of left lower limb Status: Acute Assessment and Plan: Continue cefepime, vanc, and flagyl (3) Smoker: Code(s): F17.200 - Nicotine dependence, unspecified, uncomplicated Status: Acute Plan Discussed patient's case and plan of care with Dr. Thakur History of Present Illness Consult details Consult date: 03/03/25 Reason for consult: other (abscess left knee bursa) Requesting physician: Franklyn Rivera, RYAN Narrative: Patient is a 49-year-old male with history of tobacco use (half a pack a day) who we have been asked to see in surgical consultation for an abscess of the left knee bursa. Patient 1st noticed pain and swelling to the knee 2 weeks ago. He does not recall any trauma to the area. Denies any bug bites, scrapes, or other wounds to the knee. No history of skin abscesses. 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 Patient presented to [facility] 3 days ago and placed on Zosyn and vancomycin. A CT of the left knee was performed and demonstrated no knee joint effusion. Soft tissue swelling around the knee with anterior predominance. Subcutaneous mass anterolateral to the distal femur measuring 4.1 x 1.7 x 3.0 cm. Provider spoke with surgeon here at [facility] in transfer was initiated yesterday on 03/02/2025. Decision was made to change antibiotics to cefepime, Flagyl, and vancomycin. Patient's white blood cell count is at 12.9 today, which has steadily decreased from 13.3 on Monday. Low- grade fever noted on Thursday 03/01, but otherwise afebrile. Patient denies fevers prior to arrival at the hospital. Patient has been ambulating on the leg without assistance. Denies any surgery to the knee or any surrounding structures. [facility] Family History Family History Mother Brain cancer Social History Social History Smoking packs per day: 0.5 Smoking cigarettes per day: 10.0 Years smoked: 35 Smoking pack-years: 17.50 Smoking status: Current every day smoker Tobacco type: cigarettes Second hand tobacco smoke exposure: No Alcohol intake: never Substance use: current Substance use type: marijuana Last use: 02/27/25 Lack of Transportation: No Lack of Food: Never True Current Housing: I Have Housing Concerned About Future Housing: No Difficulty Paying Gas/Electric Bills: No Difficulty Paying for Meds: No Currently Unemployed: No Education: Associate Degree Difficulty w/ Childcare or Family Care: No Spiritual care concerns: No Meds Home Medications and Allergies Home Medications ?Medication ?Instructions ?Recorded ?Confirmed ?Type No Home Medications 02/28/25 03/02/25 H istory Allergies Allergy/AdvReac Type Severity Reaction Status Date / Time No Known Allergies Allergy Verified 02/28/25 12:22 Vital Signs Vital Signs - 24 hr 03/02/25 15:31 03/02/25 15:46 03/02/25 16:00 Temperature 98.9 F 98.4 F Pulse Rate 76 96 Respiratory Rate 16 20 Blood Pressure 139/83 148/91 H Pulse Oximetry 97 96 Oxygen Delivery Room Air 03/02/25 20:00 03/02/25 22:57 03/03/25 06:00 Temperature 99.1 F 98 F Pulse Rate 85 68 Respiratory Rate 16 18 Blood Pressure 134/77 117/51 L Pulse Oximetry 96 94 Oxygen Delivery Room Air 03/03/25 08:00 Temperature Pulse Rate Respiratory Rate Blood Pressure Pulse Oximetry Oxygen Delivery Room Air Exam 2 Const: General: comfortable and no acute distress Eyes: General: appearance normal, both eyes and all related structures Neck: Neck: supple and no JVD Resp: Effort & Inspection: normal respiratory effort Cardio: Rate: regular rate Skin: General skin exam: normal color and no rashes or lesions noted Neuro: Speech: normal speech Extrem: Other: Left knee with moderate erythema that appears to be slightly outside of skin markings surrounding anterior left knee. No redness to posterior portion of knee. Significant swelling. Area of fluctuance roughly 4 x 6 cm to anteromedial portion of the knee with surrounding induraiton. No drainage or abscess head. Knee ROM decreased to about 90 degrees of flexion. Distal pulses present. Ankle and hip ROM normal. Psych: Mental Status: mental status grossly normal Results Labs 03/03/25 05:32 03/03/25 05:32 Labs: Abnormal lab results 03/03/25 Range/Units 05:32 WBC 12.9 H (4.5-10.0) K/mm3 RBC 4.14 L (4.6-6.20) M/mm3 Hgb 12.7 L (14.0-18.0) g/dL Hct 37.6 L (42.0-52.0) % Immature Gran % (Auto) 0.7 H (0-0.5) % Neut % (Auto) 73.8 H (45.5-73.1) % Lymph % (Auto) 16.6 L (18.3-44.2) % [place] # (Auto) 1.0 H (0.1-0.6) K/mm3 Abs Immat Gran (auto) 0.09 H (0.00-0.031) K/mm3 Absolute Neuts (auto) 9.5 H (1.3-6.7) K/mm3 Sodium 134 L (137-145) mmol/L Creatinine 0.62 L (0.7-1.3) mg/dL Albumin 3.4 L (3.5-5.1) g/dL Diabetes panel 03/03/25 Range/Units 05:32 Sodium 134 L (137-145) mmol/L Potassium 3.8 (3.4-5.0) mmol/L Chloride 103 (98-107) mmol/L Carbon Dioxide 25 (22-30) mmol/L BUN 11 (9-20) mg/dL Creatinine 0.62 L (0.7-1.3) mg/dL Glucose 93 (65-110) mg/dL Calcium 8.7 (8.4-10.2) mg/dL AST 34 (17-59) U/L ALT 23 (6-50) U/L Alkaline Phosphatase 80 (38-126) U/L Total Protein 6.8 (6.3-8.2) g/dL Albumin 3.4 L (3.5-5.1) g/dL Calcium panel 03/03/25 Range/Units 05:32 Calcium 8.7 (8.4-10.2) mg/dL Albumin 3.4 L (3.5-5.1) g/dL Pituitary panel 03/03/25 Range/Units 05:32 Sodium 134 L (137-145) mmol/L Potassium 3.8 (3.4-5.0) mmol/L Chloride 103 (98-107) mmol/L Carbon Dioxide 25 (22-30) mmol/L BUN 11 (9-20) mg/dL Creatinine 0.62 L (0.7-1.3) mg/dL Glucose 93 (65-110) mg/dL Calcium 8.7 (8.4-10.2) mg/dL Adrenal panel 03/03/25 Range/Units 05:32 Sodium 134 L (137-145) mmol/L Potassium 3.8 (3.4-5.0) mmol/L Chloride 103 (98-107) mmol/L Carbon Dioxide 25 (22-30) mmol/L BUN 11 (9-20) mg/dL Creatinine 0.62 L (0.7-1.3) mg/dL Glucose 93 (65-110) mg/dL Calcium 8.7 (8.4-10.2) mg/dL Total Bilirubin 0.4 (0.2-1.3) mg/dL AST 34 (17-59) U/L ALT 23 (6-50) U/L Alkaline Phosphatase 80 (38-126) U/L Total Protein 6.8 (6.3-8.2) g/dL Albumin 3.4 L (3.5-5.1) g/dL All other labs normal.
--- NOTE | 2025-03-03 14:14 | WPDANESEPPF ---
Anes - Initial Pre Proc Eval Procedure: Operation Date: 03/03/25 15:30 Proposed Procedures p Incision And Drainage Left Knee Abscess - Jese Thakur MD Date/Time: 03/03/25 14:14 Surgeon: Jhoana Young MD Pre Op Diagnosis: Left knee abscess Patient Data Age: 49 Gender: M Height: 1.78 m Weight: 82.5 kg Last Vital Signs Temp 36.6 C 03/03/25 06:00 Pulse 68 03/03/25 06:00 Resp 18 03/03/25 06:00 BP 117/51 L 03/03/25 06:00 Pulse Ox 94 03/03/25 06:00 O2 Del Method Room Air 03/03/25 08:00 Allergies Allergy/AdvReac Type Severity Reaction Status Date / Time No Known Allergies Allergy Verified 03/03/25 15:03 Home Medications ?Medication ?Instructions ?Recorded ?Confirmed ?Type No Home Medications 02/28/25 03/02/25 History Laboratory Tests 03/03/25 05:32 WBC 12.9 H K/mm3 (4.5-10.0) RBC 4.14 L M/mm3 (4.6-6.20) Hgb 12.7 L g/dL (14.0-18.0) Hct 37.6 L % (42.0-52.0) MCV 90.8 fl (80-100) MCH 30.7 pg (26-34) MCHC 33.8 g/dl (32-36) RDW 12.1 % (11.5-14.5) Plt Count 249 k/mm3 (150-375) MPV 9.6 fl (7.4-10.4) Immature Gran % (Auto) 0.7 H % (0-0.5) Neut % (Auto) 73.8 H % (45.5-73.1) Lymph % (Auto) 16.6 L % (18.3-44.2) [place] % (Auto) 7.5 % (2.6-8.5) Eos % (Auto) 0.9 % (0-4.4) Baso % (Auto) 0.5 % (0.2-1.2) Lymph # (Auto) 2.14 K/mm3 (0.9-3.2) [place] # (Auto) 1.0 H K/mm3 (0.1-0.6) Eos # (Auto) 0.1 K/mm3 (0-0.3) Baso # (Auto) 0.1 K/mm3 (0.0-0.1) Abs Immat Gran (auto) 0.09 H K/mm3 (0.00-0.031) Absolute Neuts (auto) 9.5 H K/mm3 (1.3-6.7) Absolute Nucleated RBC 0.000 K/mm3 (0.0-0.012) Nucleated RBC % 0.0 % (0.0-0.2) Sodium 134 L mmol/L (137-145) Potassium 3.8 mmol/L (3.4-5.0) Chloride 103 mmol/L (98-107) Carbon Dioxide 25 mmol/L (22-30) Anion Gap 6 mmol/L (4-12) BUN 11 mg/dL (9-20) Creatinine 0.62 L mg/dL (0.7-1.3) Estim Creat Clear Calc 128 ml/min Estimated GFR > 60 (59 - ) Glucose 93 mg/dL (65-110) Calcium 8.7 mg/dL (8.4-10.2) Magnesium 1.9 mg/dL (1.6-2.3) Total Bilirubin 0.4 mg/dL (0.2-1.3) AST 34 U/L (17-59) ALT 23 U/L (6-50) Alkaline Phosphatase 80 U/L (38-126) Total Protein 6.8 g/dL (6.3-8.2) Albumin 3.4 L g/dL (3.5-5.1) Patient hx anesthesia problems: none Family hx anesthesia problems: none Results Review: All pre-operative results and documents have been reviewed as part of the pre-operative evaluation. [facility] Past Medical History Medical History (Updated 03/03/25 @ 14:15 by Mina Yee DO) COPD (chronic obstructive pulmonary disease) Family History Family History Mother Brain cancer Social History Social History Smoking packs per day: 0.5 Smoking cigarettes per day: 10.0 Years smoked: 35 Smoking pack-years: 17.50 Smoking status: Current every day smoker Tobacco type: cigarettes Second hand tobacco smoke exposure: No Alcohol intake: never Substance use: current Substance use type: marijuana Last use: 02/27/25 Lack of Transportation: No Lack of Food: Never True Current Housing: I Have Housing Concerned About Future Housing: No Difficulty Paying Gas/Electric Bills: No Difficulty Paying for Meds: No Currently Unemployed: No Education: Associate Degree Difficulty w/ Childcare or Family Care: No Spiritual care concerns: No Anes - Eval Final PreProcedure Day of Procedure 03/03/25 14:14 Patient weight: overweight Heart: regular rate and rhythm Lungs: clear to auscultation Airway: Mallampati scale class II and special considerations poor dentition Neurological: alert and oriented Last oral intake: >/= 8 hours ASA classification: III Emergent: no Anesthetic plan: proceed Anesthesia type and monitoring: general LMA and standard monitoring Results Review: All pre-operative results and documents have been reviewed as part of the pre-operative evaluation. Informed Consent: The patient's anesthetic plan and its attendant risks and benefits were discussed with the patient/family/POA. Questions were solicited and answers provided to the satisfaction of the patient/family/POA.
[2025-03-03] MEDS: LACTATED RINGERS 1,000 ML 30 ML IV CONT (14:35)
--- NOTE | 2025-03-03 15:49 | WPDHPUPDATE1 ---
History and Physical Update Update Date/Time: 03/03/25 15:49 History and Physical has been reviewed, including an updated exam of the patient. There are NO changes in the patient's condition. Risks, benefits, and alternatives have been discussed and questions answered. Patient agrees to proceed with procedure.
[2025-03-03] MEDS: BUPivacaine HCL 0.5% 10 ML AMP 7 ML INFILTRATE (16:20)
[2025-03-03] MEDS: LIDO 1%/EPINEPHRINE 1:100,000 20 ML VIAL 7 ML INFILTRATE (16:21)
--- NOTE | 2025-03-03 17:02 | P.OP_ITS ---
Procedure Note - Detailed Date of Procedure 03/03/25 Pre-op Diagnosis Left knee abscess Post-op Diagnosis Same Procedure Performed Incision drainage left knee abscess. Surgeon Jese Thakur MD Performance Improvement Coordinator Isiah Connolly SA Anesthesia General Indications Patient is a 49-year-old white male presented with left knee pain and swelling. She was admitted to the [facility] for couple days and placed on IV antibiotics. CT scan of the extremity showed swelling of the soft tissues and what appeared to be a likely abscess in the subcutaneous tissues. He was transferred [facility] and he is being taken the operating now for incision and drainage of left knee abscess. Findings Upon initial aspiration of the fluctuant area of the left knee there was aspiration of apple pus. I then proceeded to perform simple incision and drainage of the abscess. Approximately 20 to 30 cc of pus drained from the abscess cavity. The pus that was aspirated initially was sent to microbiology for Gram stain and anaerobic and aerobic cultures there did not appear any extension of the abscess into the formal left knee joint space. Description of Procedure After informed consent was obtained patient brought to the operating room was placed in the supine position and then general LMA anesthesia was administered. The area the left distal thigh and knee region was then prepped draped usual sterile fashion. Time-out was then performed correctly identifying the patient as well as procedure to be performed verifying site marking. He was already on scheduled IV antibiotics. Over the most fluctuant portion of the knee I used a 18gauge needle attached to a 20cc syringe and performed aspiration of the most fluctuant area. [id number] of pus was aspirated. This was sent to [facility] for Gram stain and aerobic and anaerobic cultures. I then made a formal incision over the fluctuant area vertically. Incision was approximately 3cm in length. It was carried deeply down through the dermis skin I entered the pus pocket easily. There was about 30cc of pus that drained out. Once I had the incision completely open I then placed my index finger into the abscess pocket and there a couple loculations which were easily broken down with my index finger. There did not seem to be any further tunneling around to the posterior fossa of the knee. I then irrigated out the abscess cavity with sterile saline solution. A 4x4 gauze was then packed into the abscess cavity to hold pressure to achieve hemostasis. Once hemostasis was good I then packed the wound with half-inch iodoform gauze. I then injected 1% lidocaine mixed with 0.5% Marcaine with some epinephrine around the area for local anesthetic effect. The leg was then cleaned and then final dressing consisting of 4x4 gauze over the wound covered by a Kerlix gauze wrap and then a Catalino bandage wrap from the foot up to the mid thigh was placed. The patient tolerated the procedure well no complications. All sponges, needles, and instrument counts were correct at the end procedure. EBL was _5__cc. The patient was awakened and taken to recovery in stable and satisfactory condition. Implants None Estimated Blood Loss 5 Drains No Packing Yes (Half inch iodoform gauze left knee wound.) Pathology Other (Aspirated pus sent to microbiology for Gram stain and aerobic and anaerobic cultures) Complications No immediate complications Condition Stable Disposition PACU [facility] Billing Surgery - Charge Forward: Surgery Billing
[2025-03-03] MEDS: oxyCODONE HCL (*CRX) 5 MG TAB IR PO (18:46)
[2025-03-03 20:03] LABS: Cannabinoid Screen Urine Negative (Negative)
[2025-03-04] MEDS: oxyCODONE HCL (*CRX) 5 MG TAB IR PO ×2 (05:03→22:01)
[2025-03-04] MEDS: metroNIDAZOLE 500 MG/ISO 100ML 500 MG/100 ML BAG 100 MG IVPB ×3 (05:05→21:35)
[2025-03-04 05:22] LABS: Hematocrit 37.7 % (42.0-52.0); Hemoglobin 12.6 g/dL (14.0-18.0); Immature Granulocyte Percent A 0.4 % (0-0.5); Lymphocytes Absolute Auto 2.21 K/mm3 (0.9-3.2); Mean Corpuscular HGB Conc 33.4 g/dl (32-36); Mean Corpuscular Hemoglobin 30.5 pg (26-34); Mean Corpuscular Volume 91.3 fl (80-100); Nucleated Red Blood Cells Absolute Auto 0.000 K/mm3 (0.0-0.012); Nucleated Red Blood Cells Perc 0.0 % (0.0-0.2); Platelet Count Result 283 k/mm3 (150-375); Red Blood Count 4.13 M/mm3 (4.6-6.20); White Blood Count 9.4 K/mm3 (4.5-10.0)
[2025-03-04 06:00] VITALS: BP 136/81; PULSE 62; RESP 16; TEMP 37.1; O2SAT 94
[2025-03-04] MEDS: VANCOMYCIN 2,000 MG/NS 500 ML 2,000 MG/500 ML BAG 250 MG IVPB ×3 (06:17→22:01)
--- NOTE | 2025-03-04 07:11 | P.PNIM_ITS ---
Progress Note: A&P Assessment and Plan (1) Abscess of bursa of left knee: Code(s): M71.062 - Abscess of bursa, left knee Status: Acute Assessment and Plan: Consolidated swelling and erythema with fluctuance to the medial aspect of the distal femur superior to the patella No obvious wounds. No drainage. Denies any trauma. Knee CT: Soft tissue swelling around the knee. A subcutaneous mass anterolateral to the distal femur that may be a hematoma or phlegmon/abscess. - Antibiotics: Vancomycin and Zosyn started on 03/01. Transitioned to vancomycin, cefepime and Flagyl on 03/02 - Analgesics: Tylenol/[place]le/morphine for mild/moderate/severe pain respectively - Blood cultures obtained on 02/28: NGTD - UDS: opioids and benzos, patient did receive pain medications - Monitor vital signs, I&Os - Monitor serum electrolytes, CBC, cultures, WBC and temp curve - Surgery consulted s/p I&D left knee abscess on 03/[address] Thakur Wound culture obtained on 03/03: pending plan to transition to oral antibiotics per culture sensitivities (2) Cellulitis of knee, left: Code(s): L03.116 - Cellulitis of left lower limb Status: Acute Assessment and Plan: See above (3) Smoker: Code(s): F17.200 - Nicotine dependence, unspecified, uncomplicated Status: Acute Assessment and Plan: -Declined nicotine patch at [facility] Time Spent With Patient Time with patient: 25 - 35 minutes Subjective Date/time seen: 03/04/25 07:11 Interval history: 49-year-old male smoker with no significant past medical history who was transferred to [facility] from [facility] where he had previously been admitted with cellulitis and abscess of the left knee. Patient is pleasant lying comfortably in bed with family at bedside. He states pain is well controlled on the current regimen. He denies any associated tingling/numbness or shooting pain. The lower extremity remains wrapped with an Catalino wrap postop. He has no other complaints denying chest pain, shortness a breath, palpitations, nausea/vomiting, abdominal pain, and dizziness/lightheadedness. Review of Systems Review of Systems: All systems reviewed & are unremarkable except as noted in HPI and below Exam Narrative: AF HR 62 RR 16 SpO2 94 BP 136/81 General: male in no acute respiratory distress who is nontoxic appearing, lying semi recumbent in bed. HEENT: Normocephalic. Atraumatic. Extraocular movement intact. Sclera clear and anicteric. No facial asymmetry. Chest: Lungs are clear to auscultation bilaterally. No wheezes or crackles. CV: Heart was regular rate and rhythm. Abd: Abdomen was soft. Nontender. Nondistended. Positive bowel sounds. Ext: Post op dressing in place, clean/dry/intact. DP pulses bilaterally. Neuro: Patient is alert. Speech is clear. Objective Data Vital Signs Vital Signs: Vital Signs - 24 hr 03/03/25 08:00 03/03/25 14:35 03/03/25 16:26 Temperature 99 F 97.3 F L Pulse Rate 70 80 Respiratory Rate 16 16 Blood Pressure 125/73 111/79 Pulse Oximetry 95 100 Oxygen Delivery Room Air Room Air Simple Face Mask Oxygen Flow Rate 8 03/03/25 16:30 03/03/25 16:45 03/03/25 17:00 Temperature Pulse Rate 77 74 72 Respiratory Rate 15 12 16 Blood Pressure 121/78 122/80 122/82 Pulse Oximetry 100 100 98 Oxygen Delivery Simple Face Mask Room Air Room Air Oxygen Flow Rate 8 03/03/25 17:14 03/03/25 17:43 03/03/25 18:00 Temperature 97.9 F 97.0 F L Pulse Rate 78 79 78 Respiratory Rate 16 18 18 Blood Pressure 118/82 127/75 122/83 Pulse Oximetry 97 96 98 Oxygen Delivery Room Air Oxygen Flow Rate 03/03/25 18:59 03/03/25 22:00 Temperature 98.5 F 97.1 F L Pulse Rate 84 76 Respiratory Rate 18 20 Blood Pressure 111/67 123/81 Pulse Oximetry 96 100 Oxygen Delivery Oxygen Flow Rate Intake/Output Intake/Output: Intake & Output 03/01/25 03/02/25 03/03/25 03/04/25 23:59 23:59 23:59 23:59 Intake Total 1680 2130.0 150 Output Total 300 Balance 1680 2130.0 -150 Meds/Results Medications: Active Medications Generic Name Dose Route Start Last Admin Trade Name Freq PRN Reason Stop Dose Admin Acetaminophen 650 mg 03/02/25 15:33 Acetaminophen 325 Mg Tablet PO Q4H PRN Mild Pain (1-3) or Fever Hydrocodone Bitart/Acetaminophen 1 tab 03/02/25 15:33 03/03/25 22:41 Hydrocodone/Acetaminophen (*Crx) 5-325 Mg Tablet PO 1 tab Q4H PRN Administration Moderate Pain (4-6) Cefepime HCl 2 gm/ Sodium 50 mls @ 100 mls/hr 03/02/25 16:00 03/04/25 00:26 Chloride IVPB Infused Q8H TAMANNA Infusion Metronidazole 500 mg in 100 mls @ 100 mls/hr 03/02/25 22:00 03/04/25 06:05 Flagyl 500 Mg/Iso Soln 100 Ml IVPB Infused Q8HR TAMANNA Infusion Vancomycin HCl 2,000 mg in 500 mls @ 250 mls/hr 03/04/25 06:00 03/04/25 06:17 Vancomycin 2,000 Mg/Ns 500 Ml IVPB 250 mls/hr Q8H TAMANNA Administration Morphine Sulfate 2 mg 03/02/25 15:46 Morphine Sulfate (*Crx) 4 Mg/Ml Inj IV PUSH Q4H PRN Pain Rated 7-10 Ondansetron HCl 4 mg 03/02/25 15:33 Ondansetron Inj 4 Mg/2 Ml Vial IV PUSH Q6H PRN Nausea And Vomiting Oxycodone HCl 5 mg 03/03/25 17:17 03/04/25 05:03 Oxycodone Hcl (*Crx) 5 Mg Tab Ir PO 5 mg Q4H PRN Administration Pain Rated 7-10 Labs Labs: Laboratory Results - last 24 hr 03/03/25 03/04/25 19:22 05:12 WBC 9.4 RBC 4.13 L Hgb 12.6 L Hct 37.7 L MCV 91.3 MCH 30.5 MCHC 33.4 RDW 12.1 Plt Count 283 MPV 9.4 Immature Gran % (Auto) 0.4 Neut % (Auto) 64.2 Lymph % (Auto) 23.4 [place] % (Auto) 9.2 H Eos % (Auto) 2.2 Baso % (Auto) 0.6 Lymph # (Auto) 2.21 [place] # (Auto) 0.9 H Eos # (Auto) 0.2 Baso # (Auto) 0.1 Abs Immat Gran (auto) 0.04 H Absolute Neuts (auto) 6.1 Absolute Nucleated RBC 0.000 Nucleated RBC % 0.0 Vancomycin Trough 11.4 Urine Opiates Screen Positive A Urine Methadone Screen Negative Ur Barbiturates Screen Negative Ur Phencyclidine Scrn Negative Ur Amphetamine Screen Negative U Benzodiazepines Scrn Positive A Urine Cocaine Screen Negative U Cannabinoids Screen Negative Quality VTE Prophylaxis VTE prophylaxis: mechanical ordered
--- NOTE | 2025-03-04 07:50 | P.PNAN_ITS ---
Anes - Prog Note Post-Op Date/Time: 03/04/25 07:50 Cardiovascular status: normal Respiratory status: normal Airway patency: baseline Mental status: baseline Post-Op hydration status: normal Vital Signs: Last Vital Signs Temp 97.1 F L 03/03/25 22:00 Pulse 76 03/03/25 22:00 Resp 20 03/03/25 22:00 BP 123/81 03/03/25 22:00 Pulse Ox 100 03/03/25 22:00 O2 Del Method Room Air 03/03/25 17:14 O2 Flow Rate 8 03/03/25 16:30 Pain Score (VAS): 0/10 I/O: Intake & Output 03/03/25 03/03/25 03/04/25 15:59 23:59 07:59 Intake Total 200 1280.0 150 Output Total 300 Balance 200 1280.0 -150 Laboratory Tests 03/04/25 05:12 03/03/25 05:32 03/03/25 03/04/25 19:22 05:12 WBC 9.4 RBC 4.13 L Hgb 12.6 L Hct 37.7 L MCV 91.3 MCH 30.5 MCHC 33.4 RDW 12.1 Plt Count 283 MPV 9.4 Immature Gran % (Auto) 0.4 Neut % (Auto) 64.2 Lymph % (Auto) 23.4 [place] % (Auto) 9.2 H Eos % (Auto) 2.2 Baso % (Auto) 0.6 Lymph # (Auto) 2.21 [place] # (Auto) 0.9 H Eos # (Auto) 0.2 Baso # (Auto) 0.1 Abs Immat Gran (auto) 0.04 H Absolute Neuts (auto) 6.1 Absolute Nucleated RBC 0.000 Nucleated RBC % 0.0 Vancomycin Trough 11.4 Urine Opiates Screen Positive A Urine Methadone Screen Negative Ur Barbiturates Screen Negative Ur Phencyclidine Scrn Negative Ur Amphetamine Screen Negative U Benzodiazepines Scrn Positive A Urine Cocaine Screen Negative U Cannabinoids Screen Negative Post-procedural complaints: none Patient Feedback: Patient satisfied with anesthetic care.
[2025-03-04 08:53] VITALS: PULSE 62; RESP 16; O2SAT 94
[2025-03-04] MEDS: CEFEPIME 2 GM in SODIUM CHLORIDE 0.9% IV 50 ML 100 ML IVPB ×2 (08:53→17:00)
[2025-03-04] MEDS: HYDROcodone/acetaminophen (*CRX) 5-325 MG TABLET 1 TAB PO (13:29)
[2025-03-04 13:56] VITALS: BP 131/82; PULSE 62; RESP 16; TEMP 36.1; O2SAT 100
[2025-03-04] MEDS: MORPHINE SULFATE (*CRX) 4 MG/ML INJ 2 MG IV PUSH (13:59)
--- NOTE | 2025-03-04 14:16 | P.PNGS_ITS ---
Progress Note: A&P Assessment and Plan (1) Abscess of bursa of left knee: Code(s): M71.062 - Abscess of bursa, left knee Status: Acute Assessment and Plan: * S/p I&D left knee abscess yesterday. Abscess appears adequately drained. The erythema and swelling of the left knee is improving. * Continue IV antibiotics and daily iodoform packing dressing changes. * Cultures pending. (2) Cellulitis of knee, left: Code(s): L03.116 - Cellulitis of left lower limb Status: Acute Assessment and Plan: * Erythema and swelling improving s/p I&D. Continue IV antibiotics. Continue sarah wrap for compression. (3) Smoker: Code(s): F17.200 - Nicotine dependence, unspecified, uncomplicated Status: Acute Plan Discussed patient's case and plan of care with Dr. Thakur Subjective Subjective Date/Time Seen: 03/04/25 14:16 Post Op day: 1 (Incision and drainage left knee abscess) Patient reports: no new complaints and feels better Interval history: The patient feels like his pain and swelling in the left knee has improved. No issues overnight. Exam Narrative: Left knee dressing and packing removed, no purulent drainage, erythema and swelling improved. Packing and dressing reapplied. Still with only about 90 degrees of flexion of the left knee. Objective Data Vital Signs Vital Signs: Vital Signs - 24 hr 03/03/25 14:35 03/03/25 16:26 03/03/25 16:30 Temperature 99 F 97.3 F L Pulse Rate 70 80 77 Respiratory Rate 16 16 15 Blood Pressure 125/73 111/79 121/78 Pulse Oximetry 95 100 100 Oxygen Delivery Room Air Simple Face Mask Simple Face Mask Oxygen Flow Rate 8 8 03/03/25 16:45 03/03/25 17:00 03/03/25 17:14 Temperature Pulse Rate 74 72 78 Respiratory Rate 12 16 16 Blood Pressure 122/80 122/82 118/82 Pulse Oximetry 100 98 97 Oxygen Delivery Room Air Room Air Room Air Oxygen Flow Rate 03/03/25 17:43 03/03/25 18:00 03/03/25 18:59 Temperature 97.9 F 97.0 F L 98.5 F Pulse Rate 79 78 84 Respiratory Rate 18 18 18 Blood Pressure 127/75 122/83 111/67 Pulse Oximetry 96 98 96 Oxygen Delivery Oxygen Flow Rate 03/03/25 22:00 03/04/25 06:00 03/04/25 08:53 Temperature 97.1 F L 98.8 F Pulse Rate 76 62 62 Respiratory Rate 20 16 16 Blood Pressure 123/81 136/81 Pulse Oximetry 100 94 94 Oxygen Delivery Room Air Oxygen Flow Rate 03/04/25 13:56 Temperature 97.0 F L Pulse Rate 62 Respiratory Rate 16 Blood Pressure 131/82 Pulse Oximetry 100 Oxygen Delivery Oxygen Flow Rate Intake/Output Intake/Output: Intake & Output 03/01/25 03/02/25 03/03/25 03/04/25 23:59 23:59 23:59 23:59 Intake Total 1680 2130.0 1760 Output Total 300 Balance 1680 2130.0 1460 Meds/Results Medications: Active Medications Generic Name Dose Route Start Last Admin Trade Name Freq PRN Reason Stop Dose Admin Acetaminophen 650 mg 03/02/25 15:33 Acetaminophen 325 Mg Tablet PO Q4H PRN Mild Pain (1-3) or Fever Hydrocodone Bitart/Acetaminophen 1 tab 03/02/25 15:33 03/04/25 13:29 Hydrocodone/Acetaminophen (*Crx) 5-325 Mg Tablet PO 1 tab Q4H PRN Administration Moderate Pain (4-6) Cefepime HCl 2 gm/ Sodium 50 mls @ 100 mls/hr 03/02/25 16:00 03/04/25 09:23 Chloride IVPB Infused Q8H TAMANNA Infusion Metronidazole 500 mg in 100 mls @ 100 mls/hr 03/02/25 22:00 03/04/25 13:20 Flagyl 500 Mg/Iso Soln 100 Ml IVPB 100 mls/hr Q8HR TAMANNA Administration Vancomycin HCl 2,000 mg in 500 mls @ 250 mls/hr 03/04/25 06:00 03/04/25 06:17 Vancomycin 2,000 Mg/Ns 500 Ml IVPB 250 mls/hr Q8H TAMANNA Administration Morphine Sulfate 2 mg 03/02/25 15:46 03/04/25 13:59 Morphine Sulfate (*Crx) 4 Mg/Ml Inj IV PUSH 2 mg Q4H PRN Administration Pain Rated 7-10 Ondansetron HCl 4 mg 03/02/25 15:33 Ondansetron Inj 4 Mg/2 Ml Vial IV PUSH Q6H PRN Nausea And Vomiting Oxycodone HCl 5 mg 03/03/25 17:17 03/04/25 05:03 Oxycodone Hcl (*Crx) 5 Mg Tab Ir PO 5 mg Q4H PRN Administration Pain Rated 7-10 Labs Labs: Laboratory Results - last 24 hr 03/03/25 03/04/25 19:22 05:12 WBC 9.4 RBC 4.13 L Hgb 12.6 L Hct 37.7 L MCV 91.3 MCH 30.5 MCHC 33.4 RDW 12.1 Plt Count 283 MPV 9.4 Immature Gran % (Auto) 0.4 Neut % (Auto) 64.2 Lymph % (Auto) 23.4 [facility] [facility] % (Auto) 9.2 H Eos % (Auto) 2.2 Baso % (Auto) 0.6 Lymph # (Auto) 2.21 [facility] [facility] # (Auto) 0.9 H Eos # (Auto) 0.2 Baso # (Auto) 0.1 Abs Immat Gran (auto) 0.04 H Absolute Neuts (auto) 6.1 Absolute Nucleated RBC 0.000 Nucleated RBC % 0.0 Vancomycin Trough 11.4 Urine Opiates Screen Positive A Urine Methadone Screen Negative Ur Barbiturates Screen Negative Ur Phencyclidine Scrn Negative Ur Amphetamine Screen Negative U Benzodiazepines Scrn Positive A Urine Cocaine Screen Negative U Cannabinoids Screen Negative
[2025-03-04 22:00] VITALS: BP 129/75; PULSE 62; RESP 16; TEMP 36.8; O2SAT 99
[2025-03-05] MEDS: CEFEPIME 2 GM in SODIUM CHLORIDE 0.9% IV 50 ML 100 ML IVPB ×2 (00:57→08:22)
[2025-03-05 05:15] LABS: Hematocrit 37.9 % (42.0-52.0); Hemoglobin 12.6 g/dL (14.0-18.0); Mean Corpuscular HGB Conc 33.2 g/dl (32-36); Mean Corpuscular Hemoglobin 30.5 pg (26-34); Mean Corpuscular Volume 91.8 fl (80-100); Platelet Count Result 297 k/mm3 (150-375); Red Blood Count 4.13 M/mm3 (4.6-6.20); White Blood Count 7.7 K/mm3 (4.5-10.0)
[2025-03-05 05:24] LABS: Alanine Aminotransferase 92 U/L (6-50); Albumin Level 3.3 g/dL (3.5-5.1); Alkaline Phosphatase 74 U/L (38-126); Anion Gap 5 mmol/L (4-12); Aspartate Amino Transferase 104 U/L (17-59); Bilirubin,Total 0.1 mg/dL (0.2-1.3); Blood Urea Nitrogen 13 mg/dL (9-20); Calcium 8.8 mg/dL (8.4-10.2); Carbon Dioxide 28 mmol/L (22-30); Chloride 104 mmol/L (98-107); Estimated CRCL calculation 121 ml/min; Estimated Glomerular Filt Rate > 60; Glucose 97 mg/dL (65-110); Potassium 4.2 mmol/L (3.4-5.0); Sodium 137 mmol/L (137-145); Total Protein 6.8 g/dL (6.3-8.2)
[2025-03-05] MEDS: metroNIDAZOLE 500 MG/ISO 100ML 500 MG/100 ML BAG 100 MG IVPB (05:25)
[2025-03-05] MEDS: oxyCODONE HCL (*CRX) 5 MG TAB IR PO ×2 (05:45→12:13)
[2025-03-05 06:00] VITALS: BP 148/75; PULSE 66; RESP 16; TEMP 36.8; O2SAT 94
--- NOTE | 2025-03-05 10:13 | P.PNGS_ITS ---
Progress Note: A&P Assessment and Plan (1) Abscess of bursa of left knee: Code(s): M71.062 - Abscess of bursa, left knee Status: Acute Assessment and Plan: * S/p I&D left knee abscess on 03/03 and abscess was adequately drained. No purulent drainage today. The erythema has nearly resolved and swelling continues to improve. * Abscess culture growing staph aureus on preliminary results. He is surgically stable for discharge today. We will transition him to Bactrim for another week to empirically cover for MRSA. He will continue to pack his left knee wound daily and I educated the patient on this. His brother will do the dressing changes and is familiar with packing. He will follow-up in [address] Thakur in our office. (2) Cellulitis of knee, left: Code(s): L03.116 - Cellulitis of left lower limb Status: Acute (3) Smoker: Code(s): F17.200 - Nicotine dependence, unspecified, uncomplicated Status: Acute Assessment and Plan: * Recommended cessation Plan Discussed patient's case and plan of care with Dr. Thakur Subjective Subjective Date/Time Seen: 03/05/25 10:13 Patient reports: feels better, pain is less and afebrile Interval history: Left knee pain and swelling continues to improve. No issues overnight. Exam Narrative: Left knee dressing and packing removed, no purulent drainage, erythema nearly resolved and swelling improved. Packing and dressing reapplied. Left knee flexion improved, about 110-120 degrees. Const: General: comfortable and no acute distress Objective Data Vital Signs Vital Signs: Vital Signs - 24 hr 03/04/25 13:56 03/04/25 22:00 03/05/25 06:00 Temperature 97.0 F L 98.2 F 98.2 F Pulse Rate 62 62 66 Respiratory Rate 16 16 16 Blood Pressure 131/82 129/75 148/75 H Pulse Oximetry 100 99 94 Oxygen Delivery 03/05/25 08:00 Temperature Pulse Rate Respiratory Rate Blood Pressure Pulse Oximetry Oxygen Delivery Room Air Intake/Output Intake/Output: Intake & Output 03/02/25 03/03/25 03/04/25 03/05/25 23:59 23:59 23:59 23:59 Intake Total 1680 2130.0 3730 1140 Output Total 303 Balance 1680 2130.0 3427 1140 Meds/Results Medications: Active Medications Generic Name Dose Route Start Last Admin Trade Name Freq PRN Reason Stop Dose Admin Acetaminophen 650 mg 03/02/25 15:33 Acetaminophen 325 Mg Tablet PO Q4H PRN Mild Pain (1-3) or Fever Hydrocodone Bitart/Acetaminophen 1 tab 03/02/25 15:33 03/04/25 13:29 Hydrocodone/Acetaminophen (*Crx) 5-325 Mg Tablet PO 1 tab Q4H PRN Administration Moderate Pain (4-6) Cefepime HCl 2 gm/ Sodium 50 mls @ 100 mls/hr 03/02/25 16:00 03/05/25 08:22 Chloride IVPB 100 mls/hr Q8H TAMANNA Administration Metronidazole 500 mg in 100 mls @ 100 mls/hr 03/02/25 22:00 03/05/25 06:25 Flagyl 500 Mg/Iso Soln 100 Ml IVPB Infused Q8HR TAMANNA Infusion Vancomycin HCl 2,000 mg in 500 mls @ 250 mls/hr 03/05/25 10:00 Vancomycin 2,000 Mg/Ns 500 Ml IVPB Q12H TAMANNA Morphine Sulfate 2 mg 03/02/25 15:46 03/04/25 13:59 Morphine Sulfate (*Crx) 4 Mg/Ml Inj IV PUSH 2 mg Q4H PRN Administration Pain Rated 7-10 Ondansetron HCl 4 mg 03/02/25 15:33 Ondansetron Inj 4 Mg/2 Ml Vial IV PUSH Q6H PRN Nausea And Vomiting Oxycodone HCl 5 mg 03/03/25 17:17 03/05/25 05:45 Oxycodone Hcl (*Crx) 5 Mg Tab Ir PO 5 mg Q4H PRN Administration Pain Rated 7-10 Labs Labs: Laboratory Results - last 24 hr 03/05/25 05:11 WBC 7.7 RBC 4.13 L Hgb 12.6 L Hct 37.9 L MCV 91.8 MCH 30.5 MCHC 33.2 RDW 12.1 Plt Count 297 MPV 9.2 Sodium 137 Potassium 4.2 Chloride 104 Carbon Dioxide 28 Anion Gap 5 BUN 13 Creatinine 0.66 L Estim Creat Clear Calc 121 Estimated GFR > 60 Glucose 97 Calcium 8.8 Total Bilirubin 0.1 L AST 104 H ALT 92 H Alkaline Phosphatase 74 Total Protein 6.8 Albumin 3.3 L Vancomycin Trough 22.5 H
[2025-03-05] MEDS: VANCOMYCIN 2,000 MG/NS 500 ML 2,000 MG/500 ML BAG 250 MG IVPB (10:40)
--- NOTE | 2025-03-05 11:48 | P.DS_ITS ---
DS: Admitting Diagnosis Discharge Date 03/05 Admitting Diagnosis abscess DS: Discharge Diagnosis Discharge Diagnosis (1) Abscess of bursa of left knee: Code(s): M71.062 - Abscess of bursa, left knee Status: Acute (2) Cellulitis of knee, left: Code(s): L03.116 - Cellulitis of left lower limb Status: Acute (3) Smoker: Code(s): F17.200 - Nicotine dependence, unspecified, uncomplicated Status: Acute DS: Summary Hospital Course Hospital Course: 49-year-old male smoker with no significant past medical history who was transferred to [facility] from [facility] [place] where he had previously been admitted with cellulitis and abscess of the left knee. Surgery was consulted: * S/p I&D left knee abscess on 03/03 and abscess was adequately drained. No purulent drainage today. The erythema has nearly resolved and swelling continues to improve. Dressing changed today, 03/05 * Abscess culture growing staph aureus on preliminary results. He is surgically stable for discharge today. We will transition him to Bactrim for another week to empirically cover for MRSA. He will continue to pack his left knee wound daily and I educated the patient on this. His brother will do the dressing changes and is familiar with packing. He will follow-up in [address] Thakur in our office. * Status at Discharge Functional status at discharge: independent ambulation Overall status at discharge: patient is progressing back to baseline Time Spent with Patient Time attestation: Total time spent providing and/or coordinating discharge services: Exam Narrative: General: male in no acute respiratory distress who is nontoxic appearing, lying semi recumbent in bed. HEENT: Normocephalic. Atraumatic. Extraocular movement intact. Sclera clear and anicteric. No facial asymmetry. Chest: Lungs are clear to auscultation bilaterally. No wheezes or crackles. CV: Heart was regular rate and rhythm. Abd: Abdomen was soft. Nontender. Nondistended. Positive bowel sounds. Ext: Post op dressing in place, clean/dry/intact. DP pulses bilaterally. Neuro: Patient is alert. Speech is clear. Const: General: comfortable DS: Data Data Completed and Pending Labs on day of discharge: Labs from last 24 hours 03/05/25 05:11 WBC 7.7 RBC 4.13 L Hgb 12.6 L Hct 37.9 L MCV 91.8 MCH 30.5 MCHC 33.2 RDW 12.1 Plt Count 297 MPV 9.2 Sodium 137 Potassium 4.2 Chloride 104 Carbon Dioxide 28 Anion Gap 5 BUN 13 Creatinine 0.66 L Estim Creat Clear Calc 121 Estimated GFR > 60 Glucose 97 Calcium 8.8 Total Bilirubin 0.1 L AST 104 H ALT 92 H Alkaline Phosphatase 74 Total Protein 6.8 Albumin 3.3 L Vancomycin Trough 22.5 H Preliminary micro results at discharge 03/03/25 16:20 Aerobic Culture - Preliminary Knee Left Staphylococcus aureus Discharge Plan Discharge Attending physician on discharge: Shane Hernandez Oca Consulting providers: Eleanor Beaver; Jese Thakur Discharging Clinician: Maggie Estes Patient Disposition: Home Activity: may shower and other - see discharge instructions Diet: as tolerated and regular Wound Care Instructions: change dressing daily and other - see discharge in structions Discharge Instructions: Surgery discharge instructions: * Pack the left knee wound with 1/4 iodoform gauze once daily and cover with 4x4 gauze, rolled gauze, and tape. Apply BELLA wrap for compression on the left leg over the dressing. You may shower over the wound after pulling out packing for your dressing change. No submerging in water. * Would recommend remaining off work until discussed with the surgeon at your follow-up visit. * piecer up and complete all antibiotics prescribed. * Follow-up with Dr. Thakur in the office in 1 week. We will call you with time/da te of appointment. Call in the next 1-2 days if you have not heard from the office. ([phone]) * Call sooner if you develop increased redness, fever, or worsening pain. * Pain medication was sent to the pharmacy for moderate to severe pain. As pain is improving, transition off the narcotic pain medication to Tylenol or Ibuprofen over the counter for pain as needed. You may also alternate Tylenol or Ibuprofen while taking the narcotic pain medication. Do not exceed 4,000 mg of Tylenol in 24 hours. We would strongly recommend that you QUIT smoking. Patient Instructions: Antibiotic Form Patient Language: Dutch Stand Alone Forms: General Discharge Information Follow-up/Referrals: Jese Thakur MD [Physician, General Surgery] - 1 Week Discharge Medications: New sulfamethoxazole-trimethoprim [Bactrim DS] 800-160 mg tablet 1 tablet PO Q12H Qty: 15 0RF hydrocodone-acetaminophen 5-325 mg Tablet 1 tablet PO Q6H PRN (Reason: Moderate Pain (4-6)) Qty: 6 0RF No Action No Home Medications Date of admission: 03/02/25 15:33 Primary Care Provider: Tomasz Guerra Admitting Provider: Jhoana Young Attending physician on admission: Jhoana Young Condition: Stable Quality VTE Prophylaxis VTE prophylaxis: mechanical ordered Hospitalist MIPS Heart Failure (Exclusion) Patient has history of Heart Transplant or Left Ventricular Assistive Device?: No IF YES, STOP HERE Heart Failure (Qualifier) Patient has current or prior documentation of LVEF less than or equal to 40%, or mod/servere depressed LVSF?: No IF NO, STOP HERE
== END 2025-03-05 13:30 | disposition home or self-care (01) ==
PROVIDERS: Nurse Practitioner; Student in an Organized Health Care Education/Training Program; Surgery; Admitting Provider General Practice; PCP Internal Medicine; Visit Provider Student in an Organized Health Care Education/Training Program
PROC: (CPT 27301; principal; 2025-03-03 15:30)
DX: M71.062 Abscess of bursa, left knee (principal); L03.116 Cellulitis of left lower limb; A49.01 Methicillin susceptible Staphylococcus aureus infection, unspecified site; F17.210 Nicotine dependence, cigarettes, uncomplicated
CPT/HCPCS: 27301; 36415; 80053; 80202; 80307; 83735; 85025; 85027; 87070; 87075; 87186; 87205; A9270; G0378; G0379; J0692; J1836; J2004; J2250; J2270; J2405; J2704; J3010; J3373; J7030; J7120